=== PATIENT | female | born 1955 | race Caucasian/White ===

== ENCOUNTER 2017-04-17 10:42 | Outpatient (RCR) | payer MEDICAID, SELFPAY ==
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
--- NOTE | 2017-04-17 11:17 | PR.ITP_ITS ---
General Information - General Information Admitting Diagnosis: COPD Gold Classification:: GOLD 3: Severe Oxygen: none - PFT FEV1:: 0.85 FVC:: 1.87 FEV1/FVC%:: 45 - Education/Goals Barriers to Learning: Vision Impairment Individual Counseling: Initial Assessment: Dyspnea control techniques at rest, activity, and ADLs, Inhaled and respiratory medications, Exacerbation prevention & management, O2, Rx, system, safety, Nutrition & weight management, Smoking cessation - Critical Patient Goals: Breathe better: Initial Assessment, Increase endurance/stamina: Initial Assessment, Return to recreation/hobby: Initial Assessment, Control panic/anxiety: Initial Assessment, Symptom management: Initial Assessment, Take medications correctly: Initial Assessment, Stop smoking/maintain cessation: Initial Assessment Exercise - Initial Assessment - Visit Date of Eval: 04/17/17 - Problem/Goals Problems: Deconditioning, No regular exercise, Knowledge deficit exercise guidelines, Knowledge deficit exercise safety - Exercise Prescription Mode:: Treadmill, Airdyne, NuStep, Arm Ergometer Frequency (x/week): 3 Duration:: 35 MET LEVEL:: 2 HR (bpm):: 117 - 108-117 Exercise Progression: as tolerated per patient and per protocol - Plan Plan and Plan to Review:: Benefits of exercise, Core components of exercise, How to measure dyspnea level, How to monitor dyspnea level, Exercise intensity, Exercise safety guideline, Home exercise guidelines, Carmina: 3-4/11-13 Disease Management - Initial - Problems/Goals-Hypoxemia Hypoxemia Problems:: Hypoxemia, Poor knowledge of O2 use/safety - Problems/Goals-Medications Medication Problems:: Medication non-adherence, Incorrect inahled Rx use, technique Medication Goals: Adherence to prescribed medications, Correct technique/timing & care of MDI, DPI, nebulizer, and spacer. - Problems/Goals-Bronchial Hygiene Bronchial Hygiene Problems:: Ineffective secretion clearance, Respiratory infection Prevention/Management Bronchial Hygiene Goals:: Pt demonstrates effective cough, effective secretion clearance., Pt describes signs and symptoms of infection. - Initial Assessment SpO2:: 92 FiO2:: 21 Does pt report taking home meds as prescribed?: Yes Medications: Yes MDI, Yes NEB Psychosocial - Initial Assess - Problems/Goals Problems: Anxiety, Impaired Q.O.L. Psychosocial Goals: Improved psychosocial coping skills., Improved Q.O.L. - Psychosocial Test Depression:: Impaired QOL Referred to MD for counseling:: No - Plan Instructions given regarding:: Benefits of exercise, Relaxation techniques, Training in coping strategies Tobacco - Initial Assessment - Program Goals Tobacco Program Goals: Complete smoking cessation. Attend education classes. Improve Knowledge Test score - Stage of Change Stages of Change:: Action - Learning Barriers Learning Barriers: Vision, Ready to Learn - Tobacco Use Tobacco Use: Cigarettes - Smoking Cessation Critical on Wellbutrin Do you use smokeless tobacco?: No - Intervention Smoking Cessation Referral:: Yes Individual Education/Counseling:: Yes Education Schedule Given:: Yes - Education Gave Education Materials For:: Tobacco Triggers, Pulmonary Disease, Risk Factors , Breathing Techniques, Medical Compliance, Pulmonary A&P, Exacerbation Signs & Symptoms, Stress & Relaxation Nutrition/Wt Mgmt - Initial - Problems/Goals Problems: Overweight Goals: Wt Loss 1-2 lbs per week - Weight Management Knowledge Deficit Management of:: Overweight, Weight control w/Prednisone Admit Height:: 5 ft 2 in Admit Weight:: 76.204 kg Admit BMI:: 30.7 - Diabetes Diabetes:: No Insulin: No Do you monitor your blood sugar at home?: No - Intervention Referral to dietitian:: No Referral to Diabetic Clinic:: No Will attend diet classes:: Yes - Plan Nutrition Plan: Yes Nutrition education class:, Yes Medication education class [ Prednisone]:, Yes Weight control education class: Patient Health Questionnaire Initial Assessment 1. Little interest or pleasure in doing things: Several days 2. Feeling down, depressed, or hopeless: Not at all 3. Trouble falling or staying asleep, or sleeping too much: Nearly every day 4. Feeling tired or having little energy: Nearly every day 5. Poor appetite or overeating: More than half the days 6. Feeling bad about yourself -- or that you are a failure or have let yourself or your family down: Not at all 7. Trouble concentrating on things, such as reading the newspaper or watching television: Not at all 8. Moving or speaking so slowly that other people could have noticed. Or the opposite - being so fidgety or restless that you have been moving around a lot more than usual: Not at all 9. Thoughts that you would be better off , or of hurting yourself in some way: Not at all How difficult have these problems made it for you to do your work, take care of things at home, or get along with other people?: Very difficult Total Score: 9 COPD Knowledge Test Initial COPD is a lung disease that:: Makes it hard to breathe & gets worse over time In the [place] the term COPD describes 2 main lung conditions:: Emphysema & chronic bronchitis The most common lung irritant that causes COPD is:: Air pollution Common signs and symptoms of COPD include:: An ongoing cough/cough that produces a large amount of mucus, & SOB If you have COPD, what steps can you take?: All of the above Swelling of the ankles is common in COPD:: True Fatigue [tiredness] is common in COPD:: True Wheezing is common in COPD:: True Crushing chest pain is common in COPD:: False Rapid weight loss is common in COPD:: False Breathlessness is a normal response to exercise: True Exercise should be avoided if it makes you short of breath: False All bronchodilators act within 10 minutes: True A spacer device increases the medication to the lungs: False Annual flu vaccine is recommended for pts w/lung disease: True COPD Knowledge Test Total Score:: 11 COPD Assessment Test [CAT] - Questions Never cough = 0, Cough all the time = 5: 5 No phlegm = 0, Chest full of phlegm = 5: 4 No chest tightness = 0, Chest very tight = 5: 3 No breathless w/exertion = 0, Very breathless w/exertion = 5: 5 No limitations w/activity = 0, Very limited w/activity = 5: 3 Confident leaving home = 0, Not at all confident = 5: 0 Sleep soundly = 0, Don't sleep soundly = 5: 3 Lots of energy = 0, No energy at all = 5: 4 Total CAT score:: 27 Self-Efficacy Initial Assessment We would like to know how confident you are in doing certain activities. Please select your confidence level for:: Select your confidence level for the following using the scale 1-10 where 1 is not at all confident and 10 is totally confident. Your score is the average of all 6 responses. Fatigue: How confident are you that you can keep the fatigue caused by your disease from interfering with the things you want to do? Select Number: 5 Physical Discomfort or Pain: How confident are you that you can keep the physical discomfort or pain of your disease from interfering with the things you want to do? Select Number: 5 Emotional Distress: How confident are you that you can keep the emotional distress caused by your disease from interfering with the things you want to do? Select Number: 5 Other Symptoms or Health Problems: How confident are you that you can keep other symptoms or health problems from interfering with the things you want to do? Select Number: 5 Different Tasks and Activities: How confident are you that you can do the different tasks and activities needed to manage your health condition so as to reduce your need to see a doctor? Select Number: 8 Medication: How confident are you that you can do things other than just taking medication to reduce how much your illness affects your everyday life? Select Number: 10 Total Score:: 6 Nutrition Survey - Nutrition Survey Instructions Scoring Instructions: Scoring is as follows: Yes = 1 points. No = 0 point. Patient score that is >/=12 is considered to be at potential nutritional risk and could benefit from a referral to a registered dietitian. - Nutrition Survey Initial Have you lost >10 lbs over the past 2 months without trying?: No Are you following a special diet at home for diabetes, low fat, or low salt?: No Are you interested in meeting with a dietitian for help understanding your diet? : No Do you eat less than 3 meals a day?: Yes Do you eat fatty meats (still, sausage, ribs, etc), fried foods, desserts, large amounts of salad dressings, margarine, butter, or cheese most days?: Yes Do you have food allergies? [Enter types in comment field]: No Do you eat in restaurants more than 3 times a week?: Yes Do you season food with salt, seasoning salt, or garlic salt?: Yes Do you used canned, boxed, frozen meals, or soups, seasoning packets?: No Total Score:: 4
[2017-04-17 11:44] VITALS: BP 136/80; PULSE 90; RESP 16; TEMP 37.1; O2SAT 92; BMI 30.7
[2017-04-17 12:44] VITALS: O2SAT 92; BMI 30.7
--- NOTE | 2017-04-17 12:48 | PR.DATECOV_ITS ---
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 Effective Nov 22, 2012 our hours will be changing to 8:00 to 4:30 on Friday, Friday and Friday. First Date of the Month: 05/02/17 Last Date of the Month: 05/21/17
== END 2017-04-23 23:59 ==
LOC: PR 10:42
PROVIDERS: Family Provider Family Medicine; PCP Family Medicine; Visit Provider Internal Medicine Pulmonary Disease
DX: J44.9 Chronic obstructive pulmonary disease, unspecified (principal)
CPT/HCPCS: 97150; G0424

== ENCOUNTER 2017-05-21 08:00 | Outpatient (RCR) | payer MEDICAID, SELFPAY ==
[2017-04-17 11:44] VITALS: BP 136/80
[2017-04-24 01:17] VITALS: PULSE 90; RESP 16; TEMP 37.1; O2SAT 92
--- NOTE | 2017-05-06 07:50 | CR.ITP_ITS ---
Exercise - Initial Assessment - Visit Date of Eval: 05/06/17 - initial evaluation for 04/14/17 PCI - Stages of Change Stages of Change:: Action - Stress Test HR (bpm):: 117 - 108-117 MET LEVEL:: 2 - Exercise Prescription Mode:: Treadmill, Airdyne, NuStep, Arm Ergometer Angina with exercise?: No Target Heart Rate:: 126-135 - Hypertension Do any of the following apply?: Yes Resting Blood Pressure:: 100/72 - Intervention Home Exercise/Activity Goal:: Moderate Exercise 30 min/day x 5 days/wk - Education Goals:: Warm-up, RPE SANIA Scale, S/S, Safe Exercise, Self-Monitoring - Exercise Program Goals Exercise Program Goals: Aerobic Activity >30 min Nutrition - Initial Assessment - Program Goals Nutrition Program Goals: LDL <70. Total Cholesterol <200. HDL >45. Triglycerides <150. HgbA1C <7%. BMI <25 - Visit Date of Assessment:: 05/06/17 - Stages of Change Stages of Change:: Action - Diabetes Diabetes:: Yes Insulin: Yes - at HS Do you monitor your blood sugar at home?: Yes - Weight Management Height: 5 ft 4 in Weight:: 105.448 kg Total Score:: 0 - Intervention Referral to dietitian:: Yes Referral to Diabetic Clinic:: Yes Will attend diet classes:: Yes - Education Gave educational materials for:: Signs & symptoms of hypoglycemia, Signs & symptoms of hyperglycemia, Relate diabetes to coronary artery disease, Healthy eating Nutrition - 30-Day Assessment - Program Goals Nutrition Program Goals: LDL <70. Total Cholesterol <200. HDL >45. Triglycerides <150. HgbA1C <7%. BMI <25 - Diabetes Diabetes:: No Insulin: No - Intervention Referral to dietitian:: No Referral to Diabetic Clinic:: No Will attend diet classes:: Yes Nutrition - 60-Day Assessment - Program Goals Nutrition Program Goals: LDL <70. Total Cholesterol <200. HDL >45. Triglycerides <150. HgbA1C <7%. BMI <25 - Diabetes Diabetes:: No Insulin: No - Intervention Referral to dietitian:: No Referral to Diabetic Clinic:: No Will attend diet classes:: Yes Nutrition - 90-Day Assessment - Program Goals Nutrition Program Goals: LDL <70. Total Cholesterol <200. HDL >45. Triglycerides <150. HgbA1C <7%. BMI <25 - Diabetes Diabetes:: No Insulin: No - Intervention Referral to dietitian:: No Referral to Diabetic Clinic:: No Will attend diet classes:: Yes Nutrition - Final Assessment - Program Goals Nutrition Program Goals: LDL <70. Total Cholesterol <200. HDL >45. Triglycerides <150. HgbA1C <7%. BMI <25 - Diabetes Diabetes:: No Insulin: No - Weight Management Total Score:: 4 - Intervention Referral to dietitian:: No Referral to Diabetic Clinic:: No Will attend diet classes:: Yes Tobacco - Initial Assessment - Program Goals Tobacco Program Goals: Complete smoking cessation. Attend education classes. Improve Knowledge Test score - Stage of Change Stages of Change:: Action - Learning Barriers Learning Barriers: Vision, Ready to Learn - Family Support Do you have family support?: Yes - Tobacco Use Tobacco Use: Cigarettes - last cigarette Friday05/02/2017 How long ago did you quit using tobacco products?: Less than 6 months ago How many cigarettes do you smoke per day?: 0 - last cigarette was 05/02/2017 Do you use smokeless tobacco?: No - Intervention Smoking Cessation Referral:: Yes - Please follow-up with patient. Individual Education/Counseling:: Yes Education Schedule Given:: Yes - Education Gave educational material for:: Tobacco triggers, Coronary artery disease, Risk factors, Sexuality, Medical compliance, Cardiac A&P, Angina signs & symptoms Tobacco - 30-Day Assessment - Program Goals Tobacco Program Goals: Complete smoking cessation. Attend education classes. Improve Knowledge Test score - Tobacco Use Tobacco Use: Cigarettes Do you use smokeless tobacco?: No - Intervention Smoking Cessation Referral:: Yes Individual Education/Counseling:: Yes Education Schedule Given:: Yes Tobacco - 60-Day Assessment - Program Goals Tobacco Program Goals: Complete smoking cessation. Attend education classes. Improve Knowledge Test score - Tobacco Use Tobacco Use: Cigarettes Do you use smokeless tobacco?: No - Intervention Smoking Cessation Referral:: Yes Individual Education/Counseling:: Yes Education Schedule Given:: Yes Tobacco - 90-Day Assessment - Program Goals Tobacco Program Goals: Complete smoking cessation. Attend education classes. Improve Knowledge Test score - Tobacco Use Tobacco Use: Cigarettes Do you use smokeless tobacco?: No - Intervention Smoking Cessation Referral:: Yes Individual Education/Counseling:: Yes Education Schedule Given:: Yes Tobacco - Final Assessment - Program Goals Tobacco Program Goals: Complete smoking cessation. Attend education classes. Improve Knowledge Test score - Tobacco Use Tobacco Use: Cigarettes Do you use smokeless tobacco?: No - Intervention Smoking Cessation Referral:: Yes Individual Education/Counseling:: Yes Education Schedule Given:: Yes Psychosocial - Initial Assess - Target Goals Target Goals: Assess presence or absence of depression. Using a valid screening tool, maximizes coping skills. Positive support system - Stages of Change Stages of Change:: Action - Psychosocial Test Tool Used:: HANDS Depression Questionnaire Self-Efficacy Score:: 0 - Intervention PS - Interventions: Yes Attend Stress Management Classes, No Referral to Mental Health, No Referral to [facility] Case Management, No Referral to Physician, No Uses Stress Management Skills - Education Gave educational materials for:: Coping techniques, Signs & symptoms of depression, Stress management, Relaxation techniques - Patient/Program Goal Preventative Medication(s):: Aspirin, Beta mona, Statin/lipid - Assistive Devices Assistive Devices:: None Fall Risk Assessed:: Yes Psychosocial - 30-Day Assess - Target Goals Target Goals: Assess presence or absence of depression. Using a valid screening tool, maximizes coping skills. Positive support system - Psychosocial Test Tool Used:: HANDS Depression Questionnaire Self-Efficacy Score:: 6 Psychosocial - 60-Day Assess - Target Goals Target Goals: Assess presence or absence of depression. Using a valid screening tool, maximizes coping skills. Positive support system - Psychosocial Test Tool Used:: HANDS Depression Questionnaire Self-Efficacy Score:: 6 Psychosocial - 90-Day Assess - Target Goals Target Goals: Assess presence or absence of depression. Using a valid screening tool, maximizes coping skills. Positive support system - Psychosocial Test Tool Used:: HANDS Depression Questionnaire Self-Efficacy Score:: 6 Psychosocial - Final Assessmen - Target Goals Target Goals: Assess presence or absence of depression. Using a valid screening tool, maximizes coping skills. Positive support system - Psychosocial Test Tool Used:: HANDS Depression Questionnaire Self-Efficacy Score:: 6 Patient Health Questionnaire Initial Assessment 1. Little interest or pleasure in doing things: Not at all 2. Feeling down, depressed, or hopeless: Several days 3. Trouble falling or staying asleep, or sleeping too much: Several days 4. Feeling tired or having little energy: Several days 5. Poor appetite or overeating: Several days 6. Feeling bad about yourself -- or that you are a failure or have let yourself or your family down: Several days 7. Trouble concentrating on things, such as reading the newspaper or watching television: Not at all 8. Moving or speaking so slowly that other people could have noticed. Or the opposite - being so fidgety or restless that you have been moving around a lot more than usual: Not at all 9. Thoughts that you would be better off , or of hurting yourself in some way: Not at all How difficult have these problems made it for you to do your work, take care of things at home, or get along with other people?: Not difficult at all Total Score: 5 Knowledge Test - Check your knowledge Initial The #1 cause of in the [place] each year is:: Heart disease Which of the following is a common treatment for heart disease?: All of the above The arteries that feed the heart are called:: Coronary arteries HDL cholesterol is known as the good cholesterol.: False What disease increases your risk for heart disease?: Diabetes What food product raises blood cholesterol level the most?: Saturated fat The bad cholesterol in the blood is called:: HDL Hypertension is another word for:: High blood pressure A blood pressure reading of 148/88 is considered normal.: True Exercise will only benefit your health when your heart rate reaches a target level.: True Total Score:: 6 Self-Efficacy Initial Assessment We would like to know how confident you are in doing certain activities. Please select your confidence level for:: Select your confidence level for the following using the scale 1-10 where 1 is not at all confident and 10 is totally confident. Your score is the average of all 6 responses. Fatigue: How confident are you that you can keep the fatigue caused by your disease from interfering with the things you want to do? Select Number: 8 Physical Discomfort or Pain: How confident are you that you can keep the physical discomfort or pain of your disease from interfering with the things you want to do? Select Number: 8 Emotional Distress: How confident are you that you can keep the emotional distress caused by your disease from interfering with the things you want to do? Select Number: 8 Other Symptoms or Health Problems: How confident are you that you can keep other symptoms or health problems from interfering with the things you want to do? Select Number: 8 Different Tasks and Activities: How confident are you that you can do the different tasks and activities needed to manage your health condition so as to reduce your need to see a doctor? Select Number: 9 Medication: How confident are you that you can do things other than just taking medication to reduce how much your illness affects your everyday life? Select Number: 8 Total Score:: 8 Nutrition Survey - Nutrition Survey Instructions Scoring Instructions: Scoring is as follows: Yes = 1 points. No = 0 point. Patient score that is >/=12 is considered to be at potential nutritional risk and could benefit from a referral to a registered dietitian. - Nutrition Survey Initial Have you lost >10 lbs over the past 2 months without trying?: No Are you following a special diet at home for diabetes, low fat, or low salt?: Yes Are you interested in meeting with a dietitian for help understanding your diet? : No Do you eat less than 3 meals a day?: Yes Do you eat fatty meats (still, sausage, ribs, etc), fried foods, desserts, large amounts of salad dressings, margarine, butter, or cheese most days?: No Do you have food allergies? [Enter types in comment field]: No Do you eat in restaurants more than 3 times a week?: No Do you season food with salt, seasoning salt, or garlic salt?: No Do you used canned, boxed, frozen meals, or soups, seasoning packets?: No Total Score:: 2 Cardiac Rehabilitation Goals - Cardiac Rehab Goals Cardiac Rehabilitation Goals: 1. Maintain the individual as the primary focus of care. 2. To improve the patient's quality of life. 3. Identification of cardiac risk factors and provide cardiac risk factor management. 4. Enhance the psychosocial status of the patient. 5. Reconditioning enough to allow the patient to resume customary activities. 6. Control symptoms of cardiac disease - Scale Scale for measuring improvement of personal goals: Enter appropriate number in Comments. 2 = Unchanged. 3 = Slightly Better. 4 = Moderate Improvement. 5 = Met my Goal Initial Assessment Personal Goals: 30-day Re-assessment: Quit smoking (participate in smoking cessation, Improve management of stress and emotions, Improve energy level, Get back to work, or to resume activities faster, Improve diet and eating habits ( eat healthier), Control risk factors (learn risk factor modification)
[2017-05-06 08:41] VITALS: BP 100/72
--- NOTE | 2017-05-19 13:02 | PR.DATECOV_ITS ---
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 Effective Nov 22, 2012 our hours will be changing to 8:00 to 4:30 on Friday, Friday and Friday. First Date of the Month: 05/22/17 Last Date of the Month: 06/20/17
--- NOTE | 2017-05-19 13:08 | PR.ITP_ITS ---
Exercise - 30-Day Assessment - Exercise Prescription Mode:: Treadmill, NuStep, Arm Ergometer Frequency (x/week): 3 Duration:: 30 Aerobic Exercise [30-60 min 3-7x/week]:: Progressing Target heart rate: 117 - 109-117 Max HR 104 Carmina MET Level:: 2 - 2.3 MET level currently - Home Exercise Home Exercise:: No Disease Management - 30-Day - Hypoxemia Reassessment: Demonstrates knowledge of O2 Rx at rest, Demonstrates knowledge of O2 Rx with exercise, Using O2 as prescribed, Has home O2 as prescribed, Uses port O2 as prescribed - Medications Medication list reviewed:: Yes Taking medications 100% of the time:: Approximately 75% of the time Medication reassessment: Yes Pt demonstrates correct technique timing for MDI, Yes Pt demonstrates correct technique timing for DPI, Yes Pt demonstrates correct technique timing for NEB, Yes Pt demonstrates correct technique timing for spacer Psychosocial - 30-Day - Assessment Reassessment: Practicing interventions, Demonstrate coping strategies Tobacco - 30-Day Assessment - Program Goals Tobacco Program Goals: Complete smoking cessation. Attend education classes. Improve Knowledge Test score - Stage of Change Stages of Change:: Action - Learning Barriers Learning Barriers: Participates in education - Family Support Do you have family support?: Yes - Tobacco Use Tobacco Use: Non-smoker Do you use smokeless tobacco?: No - Intervention Smoking Cessation Referral:: Yes - emotional support tobacco dependency in remission Individual Education/Counseling:: No Education Schedule Given:: Yes - Education Gave Education Materials For:: Tobacco Triggers, Pulmonary Disease, Risk Factors , Breathing Techniques, Medical Compliance, Pulmonary A&P, Exacerbation Signs & Symptoms, Stress & Relaxation Nutrition/Wt Mgmt - 30-Day - Weight Management Weight Assessment:: Wt stable Weight:: 78.653 kg Weight Goals Progress:: Not progressing Patient Health Questionnaire 30-Day Re-eval Assessment 1. Little interest or pleasure in doing things: Not at all 2. Feeling down, depressed, or hopeless: Several days 3. Trouble falling or staying asleep, or sleeping too much: Not at all 4. Feeling tired or having little energy: Several days 5. Poor appetite or overeating: Not at all 6. Feeling bad about yourself -- or that you are a failure or have let yourself or your family down: Not at all 7. Trouble concentrating on things, such as reading the newspaper or watching television: Not at all 8. Moving or speaking so slowly that other people could have noticed. Or the opposite - being so fidgety or restless that you have been moving around a lot more than usual: Not at all 9. Thoughts that you would be better off , or of hurting yourself in some way: Not at all How difficult have these problems made it for you to do your work, take care of things at home, or get along with other people?: Not difficult at all Total Score: 2 COPD Assessment Test [CAT] - Questions Never cough = 0, Cough all the time = 5: 3 No phlegm = 0, Chest full of phlegm = 5: 2 No chest tightness = 0, Chest very tight = 5: 3 No breathless w/exertion = 0, Very breathless w/exertion = 5: 2 No limitations w/activity = 0, Very limited w/activity = 5: 2 Confident leaving home = 0, Not at all confident = 5: 2 Sleep soundly = 0, Don't sleep soundly = 5: 3 Lots of energy = 0, No energy at all = 5: 2 Total CAT score:: 19 Self-Efficacy 30-Day Re-eval Assessment We would like to know how confident you are in doing certain activities. Please select your confidence level for:: Select your confidence level for the following using the scale 1-10 where 1 is not at all confident and 10 is totally confident. Your score is the average of all 6 responses. Fatigue: How confident are you that you can keep the fatigue caused by your disease from interfering with the things you want to do? Select Number: 7 Physical Discomfort or Pain: How confident are you that you can keep the physical discomfort or pain of your disease from interfering with the things you want to do? Select Number: 7 Emotional Distress: How confident are you that you can keep the emotional distress caused by your disease from interfering with the things you want to do? Select Number: 7 Other Symptoms or Health Problems: How confident are you that you can keep other symptoms or health problems from interfering with the things you want to do? Select Number: 8 Different Tasks and Activities: How confident are you that you can do the different tasks and activities needed to manage your health condition so as to reduce your need to see a doctor? Select Number: 9 Medication: How confident are you that you can do things other than just taking medication to reduce how much your illness affects your everyday life? Select Number: 8 Total Score:: 7
== END 2017-05-21 23:59 ==
LOC: PR 08:00
PROVIDERS: Family Provider Family Medicine; PCP Family Medicine; Visit Provider Internal Medicine Pulmonary Disease
DX: J44.9 Chronic obstructive pulmonary disease, unspecified (principal)
CPT/HCPCS: 97150; G0424

== ENCOUNTER 2017-06-20 08:00 | Outpatient (RCR) | payer MEDICAID, SELFPAY ==
[2017-05-22 00:57] VITALS: BP 100/72; BP 136/80; PULSE 90; RESP 16; TEMP 37.1; O2SAT 92; BMI 30.7
--- NOTE | 2017-06-16 13:12 | PR.DATECOV_ITS ---
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 Effective Nov 22, 2012 our hours will be changing to 8:00 to 4:30 on Friday, Friday and Friday. First Date of the Month: 06/22/17 Last Date of the Month: 07/21/17
--- NOTE | 2017-06-16 13:13 | PCM.PR.TP ---
Exercise - 60-Day Assessment - Current Level Mode:: Treadmill, Airdyne, NuStep, Arm Ergometer Frequency (x/week): 3 Duration:: 30 Aerobic Exercise [30-60 min 3-7x/week]:: Met Target heart rate: 117 - 109-117 w/max HR 116 Carmina.5 MET Level:: 3 - Home Exercise Home Exercise:: No Disease Management - 60-Day - Hypoxemia Reassessment: Demonstrates knowledge of O2 Rx at rest, Demonstrates knowledge of O2 Rx with exercise, Using O2 as prescribed, Has home O2 as prescribed, Uses port O2 as prescribed - Medications Medication list reviewed:: Yes Taking medications 100% of the time:: Met Medication reassessment: Yes Pt demonstrates correct technique timing for MDI, Yes Pt demonstrates correct technique timing for DPI, Yes Pt demonstrates correct technique timing for NEB, Yes Pt demonstrates correct technique timing for spacer - Bronchial Hygiene Bronchial Hygiene Plan: Yes Pt demo correct for device - returned demonstration of acapella device, Yes Pt demo correct for improved hydration - drinks water during exercise, carries bottle water, Yes Pt demo correct for hand hygiene, Yes Pt demo correct for verbalize when to call MD - verbalizes signs symptoms Psychosocial - 60-Day - Assessment Depression reassess: Management of stress: Met, Management of depression: Met, Practicing interventions: Met Tobacco - 60-Day Assessment - Program Goals Tobacco Program Goals: Complete smoking cessation. Attend education classes. Improve Knowledge Test score - Stage of Change Stages of Change:: Action - Learning Barriers Learning Barriers: Participates in education - Family Support Do you have family support?: Yes - Tobacco Use Tobacco Use: Non-smoker Do you use smokeless tobacco?: No - Intervention Smoking Cessation Referral:: No Individual Education/Counseling:: No Education Schedule Given:: Yes - Education Gave Education Materials For:: Pulmonary Disease, Risk Factors, Breathing Techniques, Medical Compliance, Pulmonary A&P, Exacerbation Signs & Symptoms, Stress & Relaxation Nutrition/Wt Mgmt - 60-Day - Weight Management Weight Assessment:: Wt stable Weight:: 177 lb - gained 4 pounds this month Weight Goals Progress:: Not progressing Patient Health Questionnaire 60-Day Re-eval Assessment 1. Little interest or pleasure in doing things: Not at all 2. Feeling down, depressed, or hopeless: Not at all 3. Trouble falling or staying asleep, or sleeping too much: Not at all 4. Feeling tired or having little energy: Several days 5. Poor appetite or overeating: Not at all 6. Feeling bad about yourself -- or that you are a failure or have let yourself or your family down: Not at all 7. Trouble concentrating on things, such as reading the newspaper or watching television: Not at all 8. Moving or speaking so slowly that other people could have noticed. Or the opposite - being so fidgety or restless that you have been moving around a lot more than usual: Not at all 9. Thoughts that you would be better off , or of hurting yourself in some way: Not at all How difficult have these problems made it for you to do your work, take care of things at home, or get along with other people?: Not difficult at all Total Score: 1 COPD Assessment Test [CAT] - Questions Never cough = 0, Cough all the time = 5: 3 No phlegm = 0, Chest full of phlegm = 5: 1 No chest tightness = 0, Chest very tight = 5: 1 No breathless w/exertion = 0, Very breathless w/exertion = 5: 2 No limitations w/activity = 0, Very limited w/activity = 5: 2 Confident leaving home = 0, Not at all confident = 5: 1 Sleep soundly = 0, Don't sleep soundly = 5: 3 Lots of energy = 0, No energy at all = 5: 2 Total CAT score:: 15 Self-Efficacy 60-Day Re-eval Assessment We would like to know how confident you are in doing certain activities. Please select your confidence level for:: Select your confidence level for the following using the scale 1-10 where 1 is not at all confident and 10 is totally confident. Your score is the average of all 6 responses. Fatigue: How confident are you that you can keep the fatigue caused by your disease from interfering with the things you want to do? Select Number: 9 Physical Discomfort or Pain: How confident are you that you can keep the physical discomfort or pain of your disease from interfering with the things you want to do? Select Number: 9 Emotional Distress: How confident are you that you can keep the emotional distress caused by your disease from interfering with the things you want to do? Select Number: 8 Other Symptoms or Health Problems: How confident are you that you can keep other symptoms or health problems from interfering with the things you want to do? Select Number: 10 Different Tasks and Activities: How confident are you that you can do the different tasks and activities needed to manage your health condition so as to reduce your need to see a doctor? Select Number: 10 Medication: How confident are you that you can do things other than just taking medication to reduce how much your illness affects your everyday life? Select Number: 10 Total Score:: 9
== END 2017-06-21 23:59 ==
LOC: PR 08:00
PROVIDERS: Family Provider Family Medicine; PCP Family Medicine; Visit Provider Internal Medicine Pulmonary Disease
DX: J44.9 Chronic obstructive pulmonary disease, unspecified (principal)
CPT/HCPCS: 97150; G0424

== ENCOUNTER 2017-07-18 08:00 | Outpatient (RCR) | payer MEDICAID, SELFPAY ==
[2017-06-22 00:48] VITALS: BP 100/72; BP 136/80; PULSE 90; RESP 16; TEMP 37.1; O2SAT 92; BMI 30.7
--- NOTE | 2017-07-15 07:06 | PR.DATECOV_ITS ---
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 Effective Nov 22, 2012 our hours will be changing to 8:00 to 4:30 on Friday, Friday and Friday. First Date of the Month: 07/22/17 Last Date of the Month: 08/21/17
--- NOTE | 2017-07-15 07:12 | PR.ITP_ITS ---
Exercise - 90-Day Assessment - Exercise Prescription Mode:: Treadmill, NuStep, Arm Ergometer Frequency (x/week): 3 Duration:: 30 Aerobic Exercise [30-60 min 3-7x/week]:: Progressing Target heart rate: 117 - THRR 109-117 w/ max HR 111 Carmina MET Level:: 4 - Home Exercise Home Exercise?: Yes Frequency:: every other day Time (minutes):: 30 - walks Disease Management - 90-Day - Medications Medication list reviewed:: Yes Taking medications 100% of the time:: Met Psychosocial - 90-Day - Assessment Depression reassess: Management of stress: Met, Management of depression: Met, Practicing interventions: Met Tobacco - 90-Day Assessment - Program Goals Tobacco Program Goals: Complete smoking cessation. Attend education classes. Improve Knowledge Test score - Stage of Change Stages of Change:: Action - Learning Barriers Learning Barriers: Participates in education - Family Support Do you have family support?: Yes - Tobacco Use Tobacco Use: Cigarettes How many cigarettes do you smoke per day?: 2 - 1-5 only now and then, trying to quit. Do you use smokeless tobacco?: No - Intervention Smoking Cessation Referral:: Yes Individual Education/Counseling:: No Education Schedule Given:: Yes - Education Gave Education Materials For:: Tobacco Triggers, Pulmonary Disease, Risk Factors , Breathing Techniques, Medical Compliance, Pulmonary A&P, Exacerbation Signs & Symptoms, Stress & Relaxation Nutrition/Wt Mgmt - 90-Day - Weight Management Weight:: 179 lb Weight Goals Progress:: Progressing Patient Health Questionnaire 90-Day Re-eval Assessment 1. Little interest or pleasure in doing things: Not at all 2. Feeling down, depressed, or hopeless: Not at all 3. Trouble falling or staying asleep, or sleeping too much: Several days 4. Feeling tired or having little energy: Several days 5. Poor appetite or overeating: Not at all 6. Feeling bad about yourself -- or that you are a failure or have let yourself or your family down: Not at all 7. Trouble concentrating on things, such as reading the newspaper or watching television: Not at all 8. Moving or speaking so slowly that other people could have noticed. Or the opposite - being so fidgety or restless that you have been moving around a lot more than usual: Not at all 9. Thoughts that you would be better off , or of hurting yourself in some way: Not at all How difficult have these problems made it for you to do your work, take care of things at home, or get along with other people?: Not difficult at all Total Score: 2 COPD Assessment Test [CAT] - Questions Never cough = 0, Cough all the time = 5: 3 No phlegm = 0, Chest full of phlegm = 5: 2 No chest tightness = 0, Chest very tight = 5: 2 No breathless w/exertion = 0, Very breathless w/exertion = 5: 2 No limitations w/activity = 0, Very limited w/activity = 5: 1 Confident leaving home = 0, Not at all confident = 5: 1 Sleep soundly = 0, Don't sleep soundly = 5: 2 Lots of energy = 0, No energy at all = 5: 1 Total CAT score:: 14 Self-Efficacy 90-Day Re-eval Assessment We would like to know how confident you are in doing certain activities. Please select your confidence level for:: Select your confidence level for the following using the scale 1-10 where 1 is not at all confident and 10 is totally confident. Your score is the average of all 6 responses. Fatigue: How confident are you that you can keep the fatigue caused by your disease from interfering with the things you want to do? Select Number: 8 Physical Discomfort or Pain: How confident are you that you can keep the physical discomfort or pain of your disease from interfering with the things you want to do? Select Number: 9 Emotional Distress: How confident are you that you can keep the emotional distress caused by your disease from interfering with the things you want to do? Select Number: 10 Other Symptoms or Health Problems: How confident are you that you can keep other symptoms or health problems from interfering with the things you want to do? Select Number: 9 Different Tasks and Activities: How confident are you that you can do the different tasks and activities needed to manage your health condition so as to reduce your need to see a doctor? Select Number: 10 Medication: How confident are you that you can do things other than just taking medication to reduce how much your illness affects your everyday life? Select Number: 10 Total Score:: 9
== END 2017-07-21 23:59 ==
LOC: PR 08:00
PROVIDERS: Family Provider Family Medicine; PCP Family Medicine; Visit Provider Internal Medicine Pulmonary Disease
DX: J44.9 Chronic obstructive pulmonary disease, unspecified (principal)
CPT/HCPCS: 97150; G0424

== ENCOUNTER 2017-07-30 08:00 | Outpatient (RCR) | payer MEDICAID, SELFPAY ==
[2017-07-22 00:41] VITALS: BP 100/72; BP 136/80; PULSE 90; RESP 16; TEMP 37.1; O2SAT 92; BMI 30.7
--- NOTE | 2017-08-14 11:21 | PR.ITP_ITS ---
Exercise - Final Assessment - Exercise Prescription Mode:: Treadmill, NuStep, Arm Ergometer Frequency (x/week): 3 Duration:: 30 Aerobic Exercise [30-60 min 3-7x/week]:: Met Further followup [see D/C Summary]:: No Target heart rate: 109-117 Carmina MET Level:: 4.5 - 114% increase since starting program - Home Exercise Home Exercise:: No Disease Management - Final - Hypoxemia Final Assessment: Demonstrates knowledge of O2 Rx at rest, Demonstrates knowledge of O2 Rx with exercise, Using O2 as prescribed, Has home O2 as prescribed, Uses port O2 as prescribed - Medications Medication list reviewed:: Yes Taking medications 100% of the time:: Met Medication reassessment: Yes Pt demonstrates correct technique timing for MDI, Yes Pt demonstrates correct technique timing for DPI, Yes Pt demonstrates correct technique timing for NEB, Yes Pt demonstrates correct technique timing for spacer - Bronchial Hygiene Bronchial Hygiene Plan: Yes Pt demonstrates correctly for effective cough, Yes Pt demo correct for device, Yes Pt demo correct for improved hydration, Yes Pt demo correct for hand hygiene, Yes Pt demo correct for verbalize when to call MD , Yes Pt demo correct for cleaning of respiratory equipment Psychosocial - Final Assess - Assessment Depression reassess: Management of stress: Met, Management of depression: Met, Practicing interventions: Met Tobacco - Final Assessment - Program Goals Tobacco Program Goals: Complete smoking cessation. Attend education classes. Improve Knowledge Test score - Stage of Change Stages of Change:: Action - Learning Barriers Learning Barriers: Participates in education, Change in behavior - Family Support Do you have family support?: Yes - Tobacco Use Do you use smokeless tobacco?: No - Education Education Goal Reached?: Yes Nutrition/Wt Mgmt - Final - Weight Management Weight:: 180 lb 8 oz - 12.5# weight gain Weight Goals Progress:: Not progressing COPD Knowledge Test Discharge COPD is a lung disease that:: Makes it hard to breathe & gets worse over time In the [place] the term COPD describes 2 main lung conditions:: Emphysema & chronic bronchitis The most common lung irritant that causes COPD is:: Cigarette smoke Common signs and symptoms of COPD include:: An ongoing cough/cough that produces a large amount of mucus, & SOB If you have COPD, what steps can you take?: All of the above Swelling of the ankles is common in COPD:: False Fatigue [tiredness] is common in COPD:: True Wheezing is common in COPD:: True Crushing chest pain is common in COPD:: False Rapid weight loss is common in COPD:: False Breathlessness is a normal response to exercise: True Exercise should be avoided if it makes you short of breath: False All bronchodilators act within 10 minutes: False A spacer device increases the medication to the lungs: True Annual flu vaccine is recommended for pts w/lung disease: True COPD Knowledge Test Total Score:: 15 COPD Assessment Test [CAT] - Questions Never cough = 0, Cough all the time = 5: 1 No phlegm = 0, Chest full of phlegm = 5: 2 No chest tightness = 0, Chest very tight = 5: 1 No breathless w/exertion = 0, Very breathless w/exertion = 5: 2 No limitations w/activity = 0, Very limited w/activity = 5: 1 Confident leaving home = 0, Not at all confident = 5: 0 Sleep soundly = 0, Don't sleep soundly = 5: 1 Lots of energy = 0, No energy at all = 5: 1 Total CAT score:: 9 Self-Efficacy Discharge Assessment We would like to know how confident you are in doing certain activities. Please select your confidence level for:: Select your confidence level for the following using the scale 1-10 where 1 is not at all confident and 10 is totally confident. Your score is the average of all 6 responses. Fatigue: How confident are you that you can keep the fatigue caused by your disease from interfering with the things you want to do? Select Number: 10 Physical Discomfort or Pain: How confident are you that you can keep the physical discomfort or pain of your disease from interfering with the things you want to do? Select Number: 10 Emotional Distress: How confident are you that you can keep the emotional distress caused by your disease from interfering with the things you want to do? Select Number: 10 Other Symptoms or Health Problems: How confident are you that you can keep other symptoms or health problems from interfering with the things you want to do? Select Number: 10 Different Tasks and Activities: How confident are you that you can do the different tasks and activities needed to manage your health condition so as to reduce your need to see a doctor? Select Number: 10 Medication: How confident are you that you can do things other than just taking medication to reduce how much your illness affects your everyday life? Select Number: 10 Total Score:: 10 Nutrition Survey - Nutrition Survey Instructions Scoring Instructions: Scoring is as follows: Yes = 1 points. No = 0 point. Patient score that is >/=12 is considered to be at potential nutritional risk and could benefit from a referral to a registered dietitian. - Nutrition Survey Discharge Have you lost >10 lbs over the past 2 months without trying?: No Are you following a special diet at home for diabetes, low fat, or low salt?: No Are you interested in meeting with a dietitian for help understanding your diet? : No Do you eat less than 3 meals a day?: Yes Do you eat fatty meats (still, sausage, ribs, etc), fried foods, desserts, large amounts of salad dressings, margarine, butter, or cheese most days?: Yes Do you have food allergies? [Enter types in comment field]: No Do you eat in restaurants more than 3 times a week?: No Do you season food with salt, seasoning salt, or garlic salt?: No Do you used canned, boxed, frozen meals, or soups, seasoning packets?: Yes Total Score:: 3
== END 2017-08-21 23:59 ==
LOC: PR 08:00
PROVIDERS: Family Provider Family Medicine; PCP Family Medicine; Visit Provider Internal Medicine Pulmonary Disease
DX: J44.9 Chronic obstructive pulmonary disease, unspecified (principal)
CPT/HCPCS: 97150; G0424

== ENCOUNTER 2018-08-24 11:19 | Emergency (ER) | payer MEDICARE, OTHER, SELFPAY ==
[2018-08-24 11:20] VITALS: BP 158/87; PULSE 67; RESP 18; TEMP 37.1; O2SAT 92; BMI 32.1
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
--- NOTE | 2018-08-24 13:25 | ED.DEP ---
ED Disposition - Plan for ED Patient: Instructions: ED Concussion, Tinnitus (Ringing in the Ears), ED Sprain Strain Neck Referrals: Ming Samson MD [Primary Care Provider] - 5-7 Days Ming Ware MD [STAFF PHYSICIAN] - 3-5 Days
[2018-08-24 13:31] VITALS: BP 135/79; PULSE 75; RESP 16; O2SAT 98
== END 2018-08-24 13:32 | disposition home or self-care (01) ==
PROVIDERS: Emergency Provider Emergency Medicine; Family Provider Family Medicine; PCP Family Medicine
DX: F07.81 Postconcussional syndrome (principal); H93.13 Tinnitus, bilateral; S16.1XXA Strain of muscle, fascia and tendon at neck level, initial encounter; V89.2XXA Person injured in unspecified motor-vehicle accident, traffic, initial encounter; Y93.9 Activity, unspecified; Y92.9 Unspecified place or not applicable; J44.9 Chronic obstructive pulmonary disease, unspecified; E78.00 Pure hypercholesterolemia, unspecified; I10 Essential (primary) hypertension; Z79.899 Other long term (current) drug therapy; Z72.0 Tobacco use
CPT/HCPCS: 70450; 72125; 99282

== ENCOUNTER 2019-01-22 14:56 | Inpatient (IN) | payer MEDICARE, OTHER, SELFPAY ==
[2019-01-22] VITALS (14 sets, daily range): BP systolic 116–151; BP diastolic 65–87; PULSE 88–116; RESP 14–24; TEMP 36.3–36.7; O2SAT 90–95; BMI 30.5; BMI 30.3
[2019-01-22] MEDS: Ipratropium/Albuterol Sulfate 3 ML AMPUL.NEB INHALATION ×3 (15:04→23:53)
--- NOTE | 2019-01-22 15:04 | EKG12_ITS ---
Test Reason : Blood Pressure : / mmHG Vent. Rate : 094 BPM Atrial Rate : 094 BPM P-R Int : 254 ms QRS Dur : 078 ms QT Int : 378 ms P-R-T Axes : 024 055 074 degrees QTc Int : 472 ms Somatic/Motion Artifact Sinus rhythm with premature supraventricular complexes Low Voltage QRS (Limb Leads) Borderline ECG Confirmed by MARGARITO ANDRADE, LOI ([id number]), online content editor ABEBA MCNAMARA ([id number]) on 01/25/2019 10:05:01 AM Referred By: JAYLAN Confirmed By:LOI PIMENTEL MD
--- NOTE | 2019-01-22 15:06 | ED.DCSUM_ITS ---
History of Present Illness Chief Complaint: Shortness of Breath Informant: Patient Onset: Days Context: Gradual Onset Timing: Continuous Current Severity: Moderate Maximum Severity: Severe Narrative: The patient is a 63-year-old female with medical history first COPD who is on 2 L of oxygen at night and hypertension who presents to the emergency department shortness of breath. The patient states her symptoms began on Friday. She states she had a scant cough. She states that since then her symptoms have been worsening. She states she feels like she cannot catch her breath. She went to urgent care on Friday and was diagnosed with a COPD exacerbation. She states she returned because she felt like she can breathe today. She states that she quit smoking 2 days ago. She denies any chest pain. She has had productive sputum. She does not think she is had fever. Prior similar symptoms: Yes Recent Illness/Hospitalization: No Past Medical History - Allergies and Home Meds Allergies/Adverse Reactions: Allergies cephalexin [From Keflex] Allergy (Verified 01/22/19 15:33) Hives erythromycin base [From Erythrocin] Allergy (Verified 01/22/19 15:33) Hives atorvastatin [From Lipitor] Adverse Reaction (Verified 01/22/19 15:33) Other bupropion Adverse Reaction (Verified 01/22/19 15:33) Other varenicline [From Chantix] Adverse Reaction (Verified 01/22/19 15:33) Other Primary Care Physician: Ming Samson MD [Primary Care Provider] - Prior records reviewed: Yes Past Medical History: - - COPD, hypertension Smoking Status: Current every day smoker Review of Systems General: Denies: Chills, Fever, Sweats Eyes: Denies: Visual changes - bilaterally, Diplopia ENT: Denies: Rhinorrhea, Sore throat Cardiovascular: Denies: Chest pain, Palpitations Respiratory: Reports: Cough, Sputum, Dyspnea on exertion. Denies: Dyspnea Gastrointestinal: Denies: Abdominal pain, Nausea, Vomiting, Diarrhea, Melena, Hematochezia Genitourinary: Denies: Dysuria, Hematuria, Frequency Musculoskeletal: Denies: Back pain, Extremity Pain Skin: Denies: Rash, Wounds Neurological: Denies: Headache, Weakness, Numbness Physical Exam Vital Signs/Narrative: Vital Signs Temp Pulse Resp BP Pulse Ox 01/22/19 14:57 98.1 F 93 22 H 133/87 H 93 Inital Vital Signs reviewed: Yes General: Well nourished, Well developed, No Acute Distress Head: Normocephalic, Atraumatic Eyes: Perrl, EOMI ENT: Moist mucous membranes, No rhinorrhea Neck: Supple, Nontender Cardiovascular: Regular rate, Regular rhythm, No murmurs Respiratory: Chest nontender, Wheezing, Diminished, Decreased Air Movement Abdomen: Soft, Nontender, Nondistended, Normal bowel sounds Back: Nontender, Normal Inspection Extremities: Nontender, No edema Skin: Normal color, No rash Neurological: Alert, Oriented x3, Cranial nerves II-XII grossly intact, Normal Strength, Normal Sensation Psychological: Normal affect, Normal Mood Diagnostic/Tx/Re-eval Clinical Impression(s) from Imaging Studies Chest X-Ray 01/22/19 15:48 IMPRESSION: Diffuse increased interstitial markings throughout the lungs which are of uncertain chronicity. No focal infiltrates. No pleural effusions. Electronically Signed: Bird Apple, at 16:21 EDT Tel , Service support , Abnormal Lab Results 01/22/19 01/22/19 01/22/19 15:40 15:46 15:46 WBC 25.0 H RBC 4.79 Hgb 14.6 Hct 43.7 MCV 91.2 MCH 30.5 MCHC 33.4 RDW Std Deviation 43.8 RDW Coeff of Saad 13.1 Plt Count 370 MPV 9.7 Immature Gran % (Auto) 1.200 H Neut % (Auto) 89.4 H Lymph % (Auto) 4.8 L Loving % (Auto) 4.4 Eos % (Auto) 0.0 Baso % (Auto) 0.2 Absolute Neuts (auto) 22.3 H Absolute Lymphs (auto) 1.21 Nucleated RBC % 0 Sodium 131 L Potassium 3.1 L Chloride 84 L Carbon Dioxide 38.0 H Anion Gap 9 BUN 13 Creatinine 0.56 Estim Creat Clear Calc 119.77 Est GFR (MDRD) Af Amer 138 Est GFR (MDRD) Non-Af 114 BUN/Creatinine Ratio 23.0 H Glucose 110 H Lactic Acid 1.4 Calcium 9.9 - Rhythm Strip Rhythm Strip: Sinus Tach Rate: 110 Ectopy: None - EKG Initial EKG Interpretation: No Acute Injury Pattern, Sinus Tachycardia Prior: Unchanged - Medical Decision Making The patient presents to the emergency department cough and shortness of breath. She does have wheezing in all lung fraga. Patient was given nebulized breathing treatments, steroids, and fluids. She did have some improvement of her aeration but still had persistent bronchospasm and tachypnea. Her chest x- ray does not show focal infiltrate. However, she does have a marked leukocytosis of 25,000 and has not been on recent steroids. Given her persistent elevated work of breathing and dyspnea I do feel that she would benefit from admission. She was covered with antibiotics. The patient was discussed with the hospitalist who agrees with plan of care. Impression 1. COPD exacerbation with persistent bronchospasm and tachypnea ED Disposition - Plan for ED Patient: Referrals: Ming Samson MD [Primary Care Provider] -
[2019-01-22] MEDS: 0.9% Normal Saline 1,000 ML 150 ML IV (15:37)
[2019-01-22] MEDS: MethylPREDNISolone 125 MG/2 ML Vial IV (15:37)
--- NOTE | 2019-01-22 15:48 | RAD_ITS ---
STUDY: X-RAY CHEST REASON FOR EXAM: Female, 63 years old. Shortness of breath TECHNIQUE: Frontal and lateral views of the chest COMPARISON: None. FINDINGS: There are diffuse increased interstitial markings noted throughout the lungs. There are no focal infiltrates. There are no pleural effusions. There is no pneumothorax. The heart is normal in size. The visualized osseous structures are within normal limits. RAD/Chest PA and Lateral IMPRESSION: Diffuse increased interstitial markings throughout the lungs which are of uncertain chronicity. No focal infiltrates. No pleural effusions. Electronically Signed: Bird Apple, at 16:21 EDT Tel , Service support ,
[2019-01-22 16:03] LABS: Absolute Lymphocyte Count 1.21 X10^3/uL (0.83-4.51); Absolute Neutrophil Count 22.3 X10^3/uL (2.0-7.7); Basophil# 0.06 X10^3/uL; Basophil% 0.2 % (0-1); Eosinophil# 0.01 X10^3/uL; Hematocrit 43.7 % (37-47); Hemoglobin 14.6 g/dL (12.0-15.0); Lymphocyte # 1.21 X10^3/ul (4.0); Lymphocyte % 4.8 % (19-41); Mean Corp Hgb Conc 33.4 g/dL (32-36); Mean Corpuscular Hgb 30.5 pg (27.0-32.0); Mean Corpuscular Volume 91.2 fL (81-99); Mean Platelet Vol. 9.7 fl (6.2-12.0); Monocyte% 4.4 % (0-10); NRBC Flagged by Analyzer 0 % (0-5); Neutrophil # 22.29 X10^3/uL (2.7-7.7); Neutrophil % 89.4 % (47-70); POSITIVE DIFFERENTIAL YES; Platelet Count 370 K/mm3 (150-450); RBC Distribution Width CV 13.1 % (11.6-14.6); RBC Distribution Width SD 43.8 fl (35.1-43.9); Red Blood Count 4.79 M/mm3 (4.2-5.4)
[2019-01-22] MEDS: Albuterol 2.5 MG/3 ML VIAL.NEB. INHALATION ×3 (16:04)
[2019-01-22 16:07] LABS: Anion Gap 9 (5-15); BUN 13 mg/dL (7-18); Calcium,Total 9.9 mg/dL (8.5-10.1); Chloride 84 mmol/L (98-107); Creatinine, Serum 0.56 mg/dL (0.55-1.02); EST Glomerular Filtration Rate 114 mL/min (>60); Est Glom Filt Rate - Afr Amer 138 mL/min (>60); Estimated Creatinine Clearance 119.77 ml/min; Glucose 110 mg/dL (74-106); Potassium 3.1 mmol/L (3.5-5.1); Sodium Level 131 mmol/L (136-145)
[2019-01-22 16:12] LABS: Lactic Acid 1.4 mmol/L (0.4-2.0)
[2019-01-22 16:16] LABS: Differential Indicated SCAN CRITERIA MET
--- NOTE | 2019-01-22 16:20 | ED.RN ---
LACTIC AND CULTURE ALREADY OBTAINED, SEPSIS SCREENING INITIATED.
--- NOTE | 2019-01-22 17:00 | NURSING ---
MED SURG JOPPERI COPD EXAC
[2019-01-22 17:04] LABS: Platelet Estimate ADEQUATE (ADEQ); Red Cell Morphology NORM C+C NORMAL (NORM C&C)
--- NOTE | 2019-01-22 17:31 | HP.PCM_ITS ---
Problem List (1) COPD exacerbation Status: Acute History of Present Illness Date of Admission: 01/22/19 Chief Complaint: shortness of breath The patient is a 63 year old F Oksana with a several day history of increasing shortness of breath, cough and sputum production. Patient is active smoker but quit about 2 days ago. This is consistent with her prior episodes of COPD exacerbation. Patient has been using her bronchodilators without any relief. Patient presented to the emergency room, had a chest x-ray that was unremarkable, received bronchodilators, 125 mg of methylprednisolone and IV doxycycline. [] Past Medical History Medical History: Medical History (Last Updated 01/22/19 @ 17:34 by Lyndon Marie DO) Hyperlipidemia E78.5 COPD (chronic obstructive pulmonary disease) J44.9 HTN (hypertension) I10 Allergies cephalexin [From Keflex] Allergy (Verified 01/22/19 15:33) Hives erythromycin base [From Erythrocin] Allergy (Verified 01/22/19 15:33) Hives atorvastatin [From Lipitor] Adverse Reaction (Verified 01/22/19 15:33) Other bupropion Adverse Reaction (Verified 01/22/19 15:33) Other varenicline [From Chantix] Adverse Reaction (Verified 01/22/19 15:33) Other Home Medications: Ambulatory Orders Medication Instructions Recorded Cetirizine HCl [Zyrtec] 10 mg PO DAILY 04/17/17 Hydrochlorothiazide [Hctz] 25 mg PO DAILY 04/17/17 Lisinopril [Zestril] 20 mg PO DAILY 04/17/17 Multivit-Min/FA/Lycopen/Lutein 2 tab PO MOTUWETHFRSA 04/17/17 [Adults 50+ Multivitamin Tablet] Simvastatin [Zocor] 20 mg PO QHS 04/17/17 Ubidecarenone [Coq10] 100 mg PO MOTUWETHFRSA 04/17/17 Umeclidinium Brm/Vilanterol Tr 1 inhaler INHALATION DAILY 08/24/18 [Anoro Ellipta 62.5-25 Mcg INH] Albuterol Sulfate [Ventolin Hfa] 2 puff INHALATION 4X/DAY 01/22/19 Echinacea & Astragalus 3 tab PO MOTUWETHFRSA 01/22/19 Garlic 1,000 mg PO MOTUWETHFRSA 01/22/19 Guaifenesin [Mucinex] 600 mg PO BID 01/22/19 Magnesium Oxide [Magnesium] 500 mg PO MOTUWETHFRSA 01/22/19 Flomaton-3 Fatty Acids/Fish Oil [Fish 1 cap PO MOTUWETHFRSA 01/22/19 Oil 1,000 mg Capsule] Verapamil [Calan Sr] 180 mg PO DAILY 01/22/19 Surgical History: Surgical History (Last Updated 01/22/19 @ 17:35 by Lyndon Marie DO) H/O tubal ligation Z98.51 H/O wrist surgery Z98.890 History of ankle surgery Z98.890 Smoking Status: Light Smoker (<10/day) - States she just quit 2 days ago Tobacco Use: Cigarettes Alcohol: None Drugs: None - *Family History Sibling History Items: - - no COPD Review of Systems Constitutional: Denies: Anorexia, Chills, Fever Eyes: Denies: Blurred vision, Double vision HEENT: Denies: Head Aches, Sinus Congestion, Sinus Drainage Cardiovascular: Reports: Chest Pain - With coughing. Denies: Edema Respiratory: Reports: Cough, Shortness of Breath, Sputum production Gastrointestinal: Denies: Abdominal Pain, Nausea, Vomiting Genitourinary: Denies: Dysuria Musculoskeletal: Denies: Joint Pain, Joint Tenderness Skin: Denies: Rash, Wounds Neurological: Denies: Numbness, Tingling, Focal weakness Psychiatric: Denies: Anxiety, Depression Endocrine: Denies: Change in Body Habitus, Heat/ Cold Intolerance Hematologic/ Lymphatic: Denies: Easy Bruising, Easy Bleeding, Hx of blood clot Comment: All review systems are otherwise negative except for as mentioned above and in HPI. VTE Information - Inpt Only VTE Present on Admission: No VTE Mechan Device Prophylaxis: None VTE Pharm Prophylaxis ordered?: Yes Patient Problems: Active and Suspected Problems COPD exacerbation (Acute) - Physical Exam Vitals/I&O's: Vital Signs Temp Pulse Resp BP Pulse Ox 36.3 C L 104 H 14 116/67 94 01/22/19 17:26 01/22/19 17:26 01/22/19 17:26 01/22/19 17:26 01/22/19 17:26 Oxygen Flow Rate (L/min) 2 Oxygen Delivery Method Nasal Cannula Weight: 75.75 kg Body Mass Index (BMI) 30.5 General: Alert, Cooperative, - - Vision is in a chair next her bed and patient is propped over with her elbows on the bed leaning forward. On oxygen. No obvious respiratory distress no conversational dyspnea. HEENT: Atraumatic, Normocephalic, - - Sinus tenderness Oral: Moist Mucosa, No Gingival or Mucosal Lesions/ Ulcerations Neck: No Nodes, Trachea Midline Lungs: No wheeze, Diminished Cardiovascular: Regular rate, Regular Rhythm, Normal S1, Normal S2, No murmurs Abdomen: Bowel Sounds Present, Soft, Non Tender, Non-Distended Extremities: No edema, No Calf Tenderness Skin: No rashes, No breakdown Musculoskeletal: No Tenderness to Palpation of Joints or Extremities, No Muscle Wasting Neurological: Neuro grossly intact, Muscle tone normal, Sensory exam intact to light touch and pain Psych/Mental Status: Normal Affect, Appropriate Laboratory Results 01/22/19 15:40: Lactic Acid 1.4 01/22/19 15:46: WBC 25.0 H, RBC 4.79, Hgb 14.6, Hct 43.7, MCV 91.2, MCH 30.5, MCHC 33.4, RDW Std Deviation 43.8, RDW Coeff of Saad 13.1, Plt Count 370, MPV 9.7, Immature Gran % (Auto) 1.200 H, Neut % (Auto) 89.4 H, Lymph % (Auto) 4.8 L, Hawkins % (Auto) 4.4, Eos % (Auto) 0.0, Baso % (Auto) 0.2, Absolute Neuts (auto) 22.3 H, Absolute Lymphs (auto) 1.21, Nucleated RBC % 0, Differential Comment , Platelet Estimate ADEQUATE, RBC Morphology NORM C+C 01/22/19 15:46: Sodium 131 L, Potassium 3.1 L, Chloride 84 L, Carbon Dioxide 38.0 H, Anion Gap 9, BUN 13, Creatinine 0.56, Estim Creat Clear Calc 119.77, Est GFR (MDRD) Af Amer 138, Est GFR (MDRD) Non-Af 114, BUN/Creatinine Ratio 23.0 H, Glucose 110 H, Calcium 9.9 Chest x-ray reviewed and shows on diaphragms. No pulmonary edema. No infiltrates. Current Medications Sodium Chloride () 1,000 mls @ 150 mls/hr IV .[id number] ONE Stop: 01/22/19 21:43 Last Admin: 01/22/19 15:37 Dose: 150 mls/hr Documented by: Doxycycline Hyclate 100 mg/ (Dextrose) 260 mls @ 250 mls/hr IV X1 ONE Stop: 01/22/19 17:51 Last Admin: 01/22/19 17:06 Dose: 250 mls/hr Documented by: Sodium Chloride () 10 - 40 ml IV UD PRN PRN Reason: SALINE FLUSH Assessment/Plan All Active Problems COPD exacerbation (Acute) 1. Acute exacerbation of COPD * Plan is to continue with methylprednisolone 40 mg every 8 hours plus bronchodilators. With patient expectorating sputum, I also put her on azithromycin 500 mg daily. Patient did receive doxycycline in the ER today and then will start the azithromycin on the second. * Patient still actively smoking though she states that she is quit completely but that was only 2 days ago. We will have some smoking cessation information provided to her 2. Hypokalemia * Likely secondary to the HCTZ that she is on * Ordered for her to have 40 MeQi of potassium chloride * Check magnesium and replace of low 3. Hypertension * Stable at this time * Continue with HCTZ and lisinopril 4. VTE prophylaxis: Moderate risk. Patient will be on enoxaparin. 5. Advanced care planning: Patient wishes to have CPR in event of cardiac arrest but does not want to be intubated in the event that she has respiratory arrest. Code Visit Inpatient E&M: 64715 Init Hosp L3
[2019-01-22] MEDS: Ibuprofen 400 MG Tablet PO (18:50)
[2019-01-22] MEDS: guaiFENesin 600 MG Tablet PO (21:11)
[2019-01-22] MEDS: Simvastatin 20 MG Tablet PO (21:13)
[2019-01-22] MEDS: BENZOCAINE/MENTHOL 1 LOZENGE MUCOUS MEM (23:21)
[2019-01-22] MEDS: Acetaminophen 325 MG Tablet 650 MG PO (23:21)
[2019-01-22] MEDS: MELATONIN 3 MG TABLET PO (23:21)
[2019-01-23] VITALS (16 sets, daily range): BP systolic 136–147; BP diastolic 66–80; PULSE 80–95; RESP 18–24; TEMP 36.3–36.8; O2SAT 92–94
[2019-01-23] MEDS: 0.9% Saline Lock 10 ML Syringe IV ×4 (01:32→21:38)
[2019-01-23] MEDS: BENZOCAINE/MENTHOL 1 LOZENGE MUCOUS MEM (05:07)
[2019-01-23] MEDS: Albuterol 2.5 MG/3 ML VIAL.NEB. INHALATION (05:29)
[2019-01-23 07:18] LABS: Absolute Lymphocyte Count 1.01 X10^3/uL (0.83-4.51); Absolute Neutrophil Count 21.3 X10^3/uL (2.0-7.7); Basophil# 0.04 X10^3/uL; Basophil% 0.2 % (0-1); Hematocrit 39.9 % (37-47); Hemoglobin 13.6 g/dL (12.0-15.0); Lymphocyte # 1.01 X10^3/ul (4.0); Lymphocyte % 4.4 % (19-41); Mean Corp Hgb Conc 34.1 g/dL (32-36); Mean Corpuscular Hgb 30.4 pg (27.0-32.0); Mean Corpuscular Volume 89.3 fL (81-99); Mean Platelet Vol. 9.7 fl (6.2-12.0); Monocyte# 0.21 X10^3/uL; Monocyte% 0.9 % (0-10); NRBC Flagged by Analyzer 0 % (0-5); Neutrophil # 21.34 X10^3/uL (2.7-7.7); Neutrophil % 92.7 % (47-70); POSITIVE DIFFERENTIAL YES; Platelet Count 316 K/mm3 (150-450); RBC Distribution Width CV 12.9 % (11.6-14.6); RBC Distribution Width SD 42.5 fl (35.1-43.9); Red Blood Count 4.47 M/mm3 (4.2-5.4)
[2019-01-23 07:19] LABS: Differential Indicated SCAN CRITERIA MET
[2019-01-23 07:46] LABS: Anion Gap 6 (5-15); BUN 13 mg/dL (7-18); BUN/Creat Ratio 31.2 RATIO (10-20); Chloride 88 mmol/L (98-107); Creatinine, Serum 0.42 mg/dL (0.55-1.02); EST Glomerular Filtration Rate 162 mL/min (>60); Est Glom Filt Rate - Afr Amer 196 mL/min (>60); Estimated Creatinine Clearance 105.62 ml/min; Glucose 130 mg/dL (74-106); Magnesium 1.8 mg/dL (1.6-2.6); Sodium Level 129 mmol/L (136-145)
[2019-01-23 08:09] LABS: Differential Comment SCANNED
[2019-01-23] MEDS: Loratadine 10 MG Tablet PO (09:32)
[2019-01-23] MEDS: Multivitamins,Ther W-Minerals Tablet 1 TABLET PO (09:32)
[2019-01-23] MEDS: Enoxaparin 40 MG/0.4 ML Syringe SC (09:33)
[2019-01-23] MEDS: hydroCHLOROthiazide 25 MG Tablet PO (09:33)
[2019-01-23] MEDS: Omega-3 Acid Ethyl Esters 1 GM Capsule PO (09:33)
[2019-01-23] MEDS: guaiFENesin 600 MG Tablet PO ×2 (09:34→21:34)
[2019-01-23] MEDS: Magnesium Oxide 400 MG Tablet PO (09:34)
[2019-01-23] MEDS: Lisinopril 20 MG Tablet PO (09:35)
[2019-01-23] MEDS: Ipratropium/Albuterol Sulfate 3 ML AMPUL.NEB INHALATION ×4 (10:54→23:23)
--- NOTE | 2019-01-23 14:26 | PN_ITS ---
Patient Problems: Active and Suspected Problems (Last Updated 01/22/19 @ 17:34 by Lyndon Marie DO) COPD exacerbation (Acute) Subjective: She is having sputum production still, but she says that she is feeling a little bit better especially with the oxygen. Vitals/I&O's: Vital Signs Temp Pulse Resp BP Pulse Ox 98.3 F 89 20 H 147/80 H 93 01/23/19 14:06 01/23/19 14:06 01/23/19 14:06 01/23/19 14:06 01/23/19 14:06 Oxygen Flow Rate (L/min) 3 Oxygen Delivery Method Nasal Cannula Weight: 165 lb 11.191 oz Body Mass Index (BMI) 30.3 Intake and Output for Last 24 Hours 01/21/19 01/22/19 01/23/19 23:59 23:59 23:59 Intake Total 992.5 / 1592.5 1477.5 / 1477.5 Balance 992.5 / 1592.5 1477.5 / 1477.5 General: Alert, Oriented x3, Cooperative, No apparent distress HEENT: Atraumatic, PERRLA, EOMI, Normocephalic Oral: Moist Mucosa Neck: Supple, No JVD Lungs: No rhonchi, No wheeze, No rales, - - Very little air movement Cardiovascular: Regular rate, Regular Rhythm, Normal S1, Normal S2, No murmurs Abdomen: Soft, Non Tender, Non-Distended, No Hepato-splenomegaly Extremities: No edema, Capillary Refill Less than 3 Seconds Skin: No rashes, No breakdown Neurological: Neuro grossly intact, Sensory exam intact to light touch and pain Psych/Mental Status: Normal Affect, Appropriate Microbiology Past 72 Hours 01/22/19 19:15 Sputum, Expectorated/Coughed Respiratory Culture - Preliminary Appears to be normal respiratory jesus. Further studies to follow. Laboratory Results 01/22/19 15:40: Lactic Acid 1.4 01/22/19 15:46: WBC 25.0 H, RBC 4.79, Hgb 14.6, Hct 43.7, MCV 91.2, MCH 30.5, MCHC 33.4, RDW Std Deviation 43.8, RDW Coeff of Saad 13.1, Plt Count 370, MPV 9.7, Immature Gran % (Auto) 1.200 H, Neut % (Auto) 89.4 H, Lymph % (Auto) 4.8 L, Mccreary % (Auto) 4.4, Eos % (Auto) 0.0, Baso % (Auto) 0.2, Absolute Neuts (auto) 22.3 H, Absolute Lymphs (auto) 1.21, Nucleated RBC % 0, Differential Comment , Platelet Estimate ADEQUATE, RBC Morphology NORM C+C 01/22/19 15:46: Sodium 131 L, Potassium 3.1 L, Chloride 84 L, Carbon Dioxide 38.0 H, Anion Gap 9, BUN 13, Creatinine 0.56, Estim Creat Clear Calc 119.77, Est GFR (MDRD) Af Amer 138, Est GFR (MDRD) Non-Af 114, BUN/Creatinine Ratio 23.0 H, Glucose 110 H, Calcium 9.9 01/23/19 06:50: WBC 23.0 H, RBC 4.47, Hgb 13.6, Hct 39.9, MCV 89.3, MCH 30.4, MCHC 34.1, RDW Std Deviation 42.5, RDW Coeff of Saad 12.9, Plt Count 316, MPV 9.7, Immature Gran % (Auto) 1.800 H, Neut % (Auto) 92.7 H, Lymph % (Auto) 4.4 L, Mccreary % (Auto) 0.9, Eos % (Auto) 0.0, Baso % (Auto) 0.2, Absolute Neuts (auto) 21.3 H, Absolute Lymphs (auto) 1.01, Nucleated RBC % 0, Differential Comment SCANNED 01/23/19 06:50: Sodium 129 L, Potassium 4.0, Chloride 88 L, Carbon Dioxide 35.0 H, Anion Gap 6, BUN 13, Creatinine 0.42 L, Estim Creat Clear Calc 105.62, Est GFR (MDRD) Af Amer 196, Est GFR (MDRD) Non-Af 162, BUN/Creatinine Ratio 31.2 H, Glucose 130 H, Calcium 9.0, Magnesium 1.8 Current Medications Acetaminophen (Tylenol) 650 mg PO Q6H PRN PRN PRN Reason: Pain Score 1-3/Temp > 100.7 F Last Admin: 01/22/19 23:21 Dose: 650 mg Documented by: Albuterol Sulfate (Ventolin Aerosols) 2.5 mg INHALATION Q2H PRN PRN PRN Reason: SHORTNESS OF BREATH Last Admin: 01/23/19 05:29 Dose: 2.5 mg Documented by: Albuterol/Ipratropium (Duoneb) 3 ml INHALATION Q4H.RT [facility] Last Admin: 01/23/19 10:54 Dose: 3 ml Documented by: Dextrose (D50w Syringe) 0 gm IV X1 PRN; Protocol PRN Reason: Hypoglycemia Enoxaparin Sodium (Lovenox) 40 mg SC DAILY@1000 [facility] Last Admin: 01/23/19 09:33 Dose: 40 mg Documented by: Glucagon () 1 mg IM .X1 PRN PRN Reason: Hypoglycemia Guaifenesin (Mucinex) 600 mg PO BID [facility] Last Admin: 01/23/19 09:34 Dose: 600 mg Documented by: Hydrochlorothiazide (Hctz) 25 mg PO DAILY [facility] Last Admin: 01/23/19 09:33 Dose: 25 mg Documented by: Azithromycin 500 mg/ Dextrose 255 mls @ 250 mls/hr IV Q24 [facility] Last Infusion: 01/23/19 10:42 Dose: Infused Documented by: Sodium Chloride () 250 mls @ 15 mls/hr IV .[id number] PRN PRN Reason: Saline Flush Ibuprofen (Motrin) 400 mg PO Q4H PRN PRN PRN Reason: Pain Score 1-3/Temp > 100.7 F Last Admin: 01/22/19 18:50 Dose: 400 mg Documented by: Lisinopril (Zestril) 20 mg PO DAILY [facility] Last Admin: 01/23/19 09:35 Dose: 20 mg Documented by: Loratadine (Claritin) 10 mg PO DAILY [facility] Last Admin: 01/23/19 09:32 Dose: 10 mg Documented by: Magnesium Oxide (Mag-Ox 400) 400 mg PO MoTuWeThFrSa@1000 [facility] Last Admin: 01/23/19 09:34 Dose: 400 mg Documented by: Melatonin (Melatonin) 3 mg PO QHS PRN PRN PRN Reason: INSOMNIA Last Admin: 01/22/19 23:21 Dose: 3 mg Documented by: Methylprednisolone (Solu-Medrol) 40 mg IV Q8 [facility] Last Admin: 01/23/19 13:43 Dose: 40 mg Documented by: Multivitamins/Minerals (Multivitamin With Minerals) 1 tablet PO MoTuWeThFrSa [facility] Last Admin: 01/23/19 09:32 Dose: 1 tablet Documented by: Nutritional Formula (Lactose Free) (Ensure Enlive) 120 ml PO 4X/DAY [facility] Last Admin: 01/23/19 13:43 Dose: Not Given Documented by: [id number] Ethyl Esters (Lovaza) [facility]m [facility] Last Admin: 01/23/19 09:33 Dose: 1 gm Documented by: Ondansetron HCl (Zofran) 4 mg IV Q8H PRN PRN PRN Reason: NAUSEA/VOMITING Simvastatin (Zocor) 20 mg PO QHS [facility] Last Admin: 01/22/19 21:13 Dose: 20 mg Documented by: Sodium Chloride () 10 - 40 ml IV UD PRN PRN Reason: SALINE FLUSH Last Admin: 01/23/19 13:43 Dose: 10 ml Documented by: Throat Lozenges (Cepacol Sore Throat Lozenge) 1 lozenge MUCOUS MEM Q2H PRN PRN PRN Reason: Sore throat or cough Last Admin: 01/23/19 05:07 Dose: 1 lozenge Documented by: Verapamil HCl (Calan Sr) 180 mg PO DAILY@2200 [facility] STROKE Vital Signs/Narrative: Vital Signs Temp Pulse Resp BP Pulse Ox 01/23/19 14:06 98.3 F 89 20 H 147/80 H 93 01/23/19 13:59 89 18 93 01/23/19 10:54 87 24 H Medical Necessity - Tobacco Use Smoking Status: Light Smoker (<10/day) Tobacco Use: Cigarettes Assessment/Plan All Active Problems (Last Updated 01/22/19 @ 17:34 by Lyndon Marie DO) COPD exacerbation (Acute) 1. Acute COPD exacerbation -Continue with Solu-Medrol 40 mg IV 3 times daily -Continue with inhaler medication -We will continue to advise smoking cessation, in the meantime we will provide a nicotine patch -Continue with azithromycin as she is having sputum production despite being afebrile. She does have a leukocytosis to 23 today 2. Hypokalemia-resolved 3. HTN/HLD -Blood pressures are stable -Continue with her home blood pressure medication -Continue with statin DVT: Lovenox Code Visit Inpatient E&M: 82127 Subs Hosp L2
--- NOTE | 2019-01-23 15:25 | CASEMGMT ---
SOCIAL WORK UPDATED BY DRY HEAT CABINET ATTENDANT, SADA. PATIENT REQUESTING INFORMATION ON ADVANCED DIRECTIVES. THIS WORKER TO PATIENT'S ROOM, FAMILY AT BEDSIDE. PATIENT IN RESTROOM AT THIS TIME. INTRODUCED ROLE. FAMILY STATES WILL TAKE INFORMATION FOR PATIENT. RACK CARD FOR ADVANCED DIRECTIVES PROVIDED ALONG WITH FORMS. INFORMED IF PATIENT WISHES TO COMPLETE WHILE IN THE HOSPITAL ABLE TO DO SO. NO FURTHER QUESTIONS AT THIS TIME. Pradeep BLOOD, NEMATOLOGIST, SUPERVISOR SLASHING DEPARTMENT.
--- NOTE | 2019-01-23 15:27 | CM.UR ---
RN CM Assessment Introduced role of RN CM to patient. Patient is alert and able to participate in RN CM Assessment. She was standing at window upon my entry watching the helicopter take off. She ambulated well to chair and sat down for assessment. Care providers, pharmacy, and demographics verified. No family at bedside. Presentation: Increased sob and cough Admit Dx: COPD Exacerbation Re-Admit: no Barriers/Issues: None noted PCP: [place] Specialists: States [facility] for pulmonary but seeing someone else in February. She couldn't remember the name. Preferred Pharmacy: [facility] Insurance: [employer] and [employer] Supplement Rx Benefit: yes through supplement. LNOK: Sumi Sanchez, daughter LW/HPOA: None. Discussed with her and she was agreeable to booklet and asked for the forms. Explained she can complete them while here and that I will alert the SW. Explained if discharged before done that she can call into the hospital and ask to talk to SW to see if can come in to complete. Verb understanding. Did alert YEIMI Mcghee on today and she agreed to stop by and talk to patient. Living Arrangements: Lives in [place] home with 3 wide steps to enter. States she was using a walker after an accident in the paste and she had wide steps placed. ADL?s: States she is totally independent normally. Transportation: Drives self. DME: Walker, grab bars and O2 from [facility]. Currently uses o2 only at night. DME co: [employer] HHC: None SNF: None Goal: Wants to return home. DC PLAN: Home. Only possible need is nebulizer. States she does not have one at home. Lindsey Baird, ASHUTOSH, CCM.
[2019-01-23] MEDS: Verapamil SR 180 MG CAPSULE PO (21:34)
[2019-01-23] MEDS: Simvastatin 20 MG Tablet PO (21:38)
[2019-01-24] VITALS (13 sets, daily range): BP systolic 107–137; BP diastolic 50–76; PULSE 80–98; RESP 16–22; TEMP 36.7–36.9; O2SAT 85–97
[2019-01-24] MEDS: Ipratropium/Albuterol Sulfate 3 ML AMPUL.NEB INHALATION ×4 (03:58→23:18)
[2019-01-24] MEDS: 0.9% Saline Lock 10 ML Syringe IV ×2 (05:13→14:09)
[2019-01-24 05:17] LABS: Absolute Lymphocyte Count 1.27 X10^3/uL (0.83-4.51); Basophil# 0.12 X10^3/uL; Basophil% 0.4 % (0-1); Hematocrit 42.7 % (37-47); Hemoglobin 14.1 g/dL (12.0-15.0); Lymphocyte # 1.27 X10^3/ul (4.0); Mean Corpuscular Hgb 30.7 pg (27.0-32.0); Mean Platelet Vol. 10.2 fl (6.2-12.0); Monocyte# 0.68 X10^3/uL; Monocyte% 2.1 % (0-10); NRBC Flagged by Analyzer 0 % (0-5); Neutrophil # 28.98 X10^3/uL (2.7-7.7); Neutrophil % 90.1 % (47-70); POSITIVE COUNT YES; POSITIVE DIFFERENTIAL YES; Platelet Count 389 K/mm3 (150-450); RBC Distribution Width CV 13.2 % (11.6-14.6); RBC Distribution Width SD 45.2 fl (35.1-43.9); Red Blood Count 4.59 M/mm3 (4.2-5.4)
[2019-01-24 05:42] LABS: Anion Gap 8 (5-15); BUN 13 mg/dL (7-18); Calcium,Total 9.3 mg/dL (8.5-10.1); Chloride 88 mmol/L (98-107); Creatinine, Serum 0.59 mg/dL (0.55-1.02); EST Glomerular Filtration Rate 108 mL/min (>60); Est Glom Filt Rate - Afr Amer 131 mL/min (>60); Estimated Creatinine Clearance 75.19 ml/min; Glucose 147 mg/dL (74-106); Potassium 4.1 mmol/L (3.5-5.1); Sodium Level 134 mmol/L (136-145)
[2019-01-24 05:58] LABS: Differential Indicated SCAN CRITERIA MET; White Blood Count 32.1 K/mm3 (4.4-11.0)
--- NOTE | 2019-01-24 05:59 | NURSING ---
lab called with 32.1 WBC told primary ASHUTOSH Rizvi.
--- NOTE | 2019-01-24 09:21 | PN_ITS ---
Patient Problems: Active and Suspected Problems (Last Updated 01/22/19 @ 17:34 by Lyndon Marie DO) COPD exacerbation (Acute) Subjective: No issues overnight. Feels about the same as yesterday Vitals/I&O's: Vital Signs Temp Pulse Resp BP Pulse Ox 98.4 F 90 16 117/57 L 97 01/24/19 05:00 01/24/19 06:37 01/24/19 06:37 01/24/19 05:00 01/24/19 06:37 Oxygen Flow Rate (L/min) 2 Oxygen Delivery Method Nasal Cannula Weight: 165 lb 11.191 oz Body Mass Index (BMI) 30.3 Intake and Output for Last 24 Hours 01/22/19 01/23/19 01/24/19 23:59 23:59 22:59 Intake Total 992.5 / 1592.5 1976. / 1976. 300 / 300 Balance 992.5 / 1592.5 / 300 / 300 General: Alert, Oriented x3, Cooperative, No apparent distress HEENT: Atraumatic, PERRLA, EOMI, Normocephalic Oral: Moist Mucosa Neck: Supple, No JVD Lungs: No rhonchi, No wheeze, No rales, - - Very little air movement, very tight Cardiovascular: Regular rate, Regular Rhythm, Normal S1, Normal S2, No murmurs Abdomen: Soft, Non Tender, Non-Distended, No Hepato-splenomegaly Extremities: No edema, Capillary Refill Less than 3 Seconds Skin: No rashes, No breakdown Neurological: Neuro grossly intact, Sensory exam intact to light touch and pain Psych/Mental Status: Normal Affect, Appropriate Microbiology Past 72 Hours 01/22/19 19:15 Sputum, Expectorated/Coughed Gram Stain - Final 01/22/19 19:15 Sputum, Expectorated/Coughed Respiratory Culture - Preliminary Appears to be normal respiratory jesus. Further studies to follow. Laboratory Results 01/24/19 04:08: WBC 32.1 H*, RBC 4.59, Hgb 14.1, Hct 42.7, MCV 93.0, MCH 30.7, MCHC 33.0, RDW Std Deviation 45.2 H, RDW Coeff of Saad 13.2, Plt Count 389, MPV 10.2, Immature Gran % (Auto) 3.400 H, Neut % (Auto) 90.1 H, Lymph % (Auto) 4.0 L , Banner % (Auto) 2.1, Eos % (Auto) 0.0, Baso % (Auto) 0.4, Absolute Neuts (auto) 29.0 H, Absolute Lymphs (auto) 1.27, Nucleated RBC % 0, Differential Comment , Diff Path Review July [facility] 01/24/19 04:08: Sodium 134 L, Potassium 4.1, Chloride 88 L, Carbon Dioxide 38.0 H, Anion Gap 8, BUN 13, Creatinine 0.59, Estim Creat Clear Calc 75.19, Est GFR (MDRD) Af Amer 131, Est GFR (MDRD) Non-Af 108, BUN/Creatinine Ratio 22.0 H, Glucose 147 H, Calcium 9.3 Current Medications Acetaminophen (Tylenol) 650 mg PO Q6H PRN PRN PRN Reason: Pain Score 1-3/Temp > 100.7 F Last Admin: 01/22/19 23:21 Dose: 650 mg Documented by: Albuterol Sulfate (Ventolin Aerosols) 2.5 mg INHALATION Q2H PRN PRN PRN Reason: SHORTNESS OF BREATH Last Admin: 01/23/19 05:29 Dose: 2.5 mg Documented by: Albuterol/Ipratropium (Duoneb) 3 ml INHALATION Q4H.RT [facility] Last Admin: 01/24/19 06:37 Dose: 3 ml Documented by: Dextrose (D50w Syringe) 0 gm IV X1 PRN; Protocol PRN Reason: Hypoglycemia Enoxaparin Sodium (Lovenox) 40 mg SC DAILY@1000 [facility] Last Admin: 01/23/19 09:33 Dose: 40 mg Documented by: Glucagon () 1 mg IM .X1 PRN PRN Reason: Hypoglycemia Guaifenesin (Mucinex) 600 mg PO BID [facility] Last Admin: 01/23/19 21:34 Dose: 600 mg Documented by: Hydrochlorothiazide (Hctz) 25 mg PO DAILY [facility] Last Admin: 01/23/19 09:33 Dose: 25 mg Documented by: Azithromycin 500 mg/ Dextrose 255 mls @ 250 mls/hr IV Q24 [facility] Last Infusion: 01/23/19 10:42 Dose: Infused Documented by: Sodium Chloride () 250 mls @ 15 mls/hr IV .[id number] PRN PRN Reason: Saline Flush Ibuprofen (Motrin) 400 mg PO Q4H PRN PRN PRN Reason: Pain Score 1-3/Temp > 100.7 F Last Admin: 01/22/19 18:50 Dose: 400 mg Documented by: Lisinopril (Zestril) 20 mg PO DAILY [facility] Last Admin: 01/23/19 09:35 Dose: 20 mg Documented by: Loratadine (Claritin) 10 mg PO DAILY [facility] Last Admin: 01/23/19 09:32 Dose: 10 mg Documented by: Magnesium Oxide (Mag-Ox 400) 400 mg PO MoTuWeThFrSa@1000 [facility] Last Admin: 01/23/19 09:34 Dose: 400 mg Documented by: Melatonin (Melatonin) 3 mg PO QHS PRN PRN PRN Reason: INSOMNIA Last Admin: 01/22/19 23:21 Dose: 3 mg Documented by: Methylprednisolone (Solu-Medrol) 40 mg IV Q8 [facility] Last Admin: 01/24/19 05:11 Dose: 40 mg Documented by: Multivitamins/Minerals (Multivitamin With Minerals) 1 tablet PO MoTuWeThFrSa [facility] Last Admin: 01/23/19 09:32 Dose: 1 tablet Documented by: Nicotine (Nicoderm Cq (Pbkc)) 7 mg TRANSDERM. DAILY [facility] Last Admin: 01/23/19 17:33 Dose: 7 mg Documented by: Nutritional Formula (Lactose Free) (Ensure Enlive) 120 ml PO 4X/DAY [facility] Last Admin: 01/23/19 21:34 Dose: 120 ml Documented by: Argrs-0-Dzoc Ethyl Esters (Lovaza) 1 gm PO MoTuWeThFrSa [facility] Last Admin: 01/23/19 09:33 Dose: 1 gm Documented by: Ondansetron HCl (Zofran) 4 mg IV Q8H PRN PRN PRN Reason: NAUSEA/VOMITING Simvastatin (Zocor) 20 mg PO QHS [facility] Last Admin: 01/23/19 21:38 Dose: 20 mg Documented by: Sodium Chloride () 10 - 40 ml IV UD PRN PRN Reason: SALINE FLUSH Last Admin: 01/24/19 05:13 Dose: 10 ml Documented by: Throat Lozenges (Cepacol Sore Throat Lozenge) 1 lozenge MUCOUS MEM Q2H PRN PRN PRN Reason: Sore throat or cough Last Admin: 01/23/19 05:07 Dose: 1 lozenge Documented by: Verapamil HCl (Calan Sr) 180 mg PO DAILY@2200 [facility] Last Admin: 01/23/19 21:34 Dose: 180 mg Documented by: STROKE Vital Signs/Narrative: Vital Signs Pulse Resp Pulse Ox 01/24/19 06:37 90 16 97 Medical Necessity - Tobacco Use Smoking Status: Light Smoker (<10/day) Tobacco Use: Cigarettes Assessment/Plan All Active Problems (Last Updated 01/22/19 @ 17:34 by Lyndon Marie DO) COPD exacerbation (Acute) 1. Acute COPD exacerbation -Continue with Solu-Medrol 40 mg IV 3 times daily, which explains worse leukocytosis -Continue with inhaler medication -We will continue to advise smoking cessation, in the meantime we will provide a nicotine patch -Continue with azithromycin as she is having sputum production despite being afebrile. She does have a leukocytosis to 32 today 2. Hypokalemia-resolved 3. HTN/HLD -Blood pressures are stable -Continue with her home blood pressure medication -Continue with statin DVT: Lovenox Code Visit Inpatient E&M: 27306 Subs Hosp L2
[2019-01-24] MEDS: Loratadine 10 MG Tablet PO (10:19)
[2019-01-24] MEDS: hydroCHLOROthiazide 25 MG Tablet PO (10:20)
[2019-01-24] MEDS: Enoxaparin 40 MG/0.4 ML Syringe SC (10:20)
[2019-01-24] MEDS: guaiFENesin 600 MG Tablet PO ×2 (10:20→21:17)
[2019-01-24] MEDS: Lisinopril 20 MG Tablet PO (10:21)
[2019-01-24] MEDS: Simvastatin 20 MG Tablet PO (21:17)
[2019-01-24] MEDS: Verapamil SR 180 MG CAPSULE PO (21:17)
[2019-01-25] VITALS (9 sets, daily range): BP systolic 116–136; BP diastolic 54–73; PULSE 79–94; RESP 18–20; TEMP 36.6–36.8; O2SAT 2–97
[2019-01-25] MEDS: Ipratropium/Albuterol Sulfate 3 ML AMPUL.NEB INHALATION ×3 (03:10→10:40)
[2019-01-25 05:36] LABS: Hematocrit 40.8 % (37-47); Hemoglobin 13.3 g/dL (12.0-15.0); Mean Corp Hgb Conc 32.6 g/dL (32-36); Mean Corpuscular Hgb 30.9 pg (27.0-32.0); Mean Corpuscular Volume 94.9 fL (81-99); Mean Platelet Vol. 9.7 fl (6.2-12.0); POSITIVE COUNT YES; POSITIVE DIFFERENTIAL YES; POSITIVE MORPHOLOGY YES; Platelet Count 369 K/mm3 (150-450); RBC Distribution Width CV 13.7 % (11.6-14.6); RBC Distribution Width SD 47.3 fl (35.1-43.9)
[2019-01-25 06:03] LABS: Anion Gap 6 (5-15); BUN 18 mg/dL (7-18); BUN/Creat Ratio 27.9 RATIO (10-20); Calcium,Total 9.1 mg/dL (8.5-10.1); Chloride 92 mmol/L (98-107); Creatinine, Serum 0.64 mg/dL (0.55-1.02); Differential Indicated MANUAL DIFF; EST Glomerular Filtration Rate 98 mL/min (>60); Est Glom Filt Rate - Afr Amer 118 mL/min (>60); Estimated Creatinine Clearance 69.31 ml/min; Glucose 130 mg/dL (74-106); Potassium 3.8 mmol/L (3.5-5.1); Sodium Level 139 mmol/L (136-145)
[2019-01-25 06:04] LABS: Neutrophil % 85.9 % (47-70)
[2019-01-25 06:05] LABS: White Blood Count 31.2 K/mm3 (4.4-11.0)
[2019-01-25] MEDS: 0.9% Saline Lock 10 ML Syringe IV ×2 (06:08→12:16)
[2019-01-25 06:28] LABS: Lymphocyte 4 % (19-41); Metamyelocyte 1 % (0-1); Monocyte 2 % (0-10); Neutrophil-Band 1 % (0-5); Neutrophil-Segmented 92 % (47-70); Platelet Estimate ADEQUATE (ADEQ); Red Cell Morphology NORM C+C NORMAL (NORM C&C); Total Cells Counted 100 (MANUAL DIFF); Toxic Granulation 2+
[2019-01-25 06:29] LABS: Absolute Lymphocyte Count 1.25 X10^3/uL (0.83-4.51); Lymphocyte # 1.25 X10^3/ul (4.0); Neutrophil # 29.01 X10^3/uL (2.7-7.7)
[2019-01-25] MEDS: Multivitamins,Ther W-Minerals Tablet 1 TABLET PO (07:45)
--- NOTE | 2019-01-25 10:26 | DCINST_ITS ---
- Discharge Diagnoses Current Active Problems: Current Active and Chronic Problems (Last Updated 01/22/19 @ 17:34 by Lyndon Marie DO) COPD exacerbation (Acute) You will use the following diet at home:: Regular Your food should be the consistency of: Regular Your liquids should be the consistency of: Regular/Thin Discharge Activity: Return to Normal Activity Call your doctor if you observe: Fever of 101 or Higher, Shortness of breath, Dizziness, Fainting spells, Swelling in the ankles, Chest pain, Increased palpitations (irregular heartbeat) Allergies/Adverse Reactions: Allergies cephalexin [From Keflex] Allergy (Verified 01/22/19 15:33) Hives erythromycin base [From Erythrocin] Allergy (Verified 01/22/19 15:33) Hives atorvastatin [From Lipitor] Adverse Reaction (Verified 01/22/19 15:33) Other bupropion Adverse Reaction (Verified 01/22/19 15:33) Other varenicline [From Chantix] Adverse Reaction (Verified 01/22/19 15:33) Other Medications to take at Discharge Cetirizine HCl [Zyrtec] 10 mg PO DAILY 04/17/17 Hydrochlorothiazide [Hctz] 25 mg PO DAILY 04/17/17 Lisinopril [Zestril] 20 mg PO DAILY 04/17/17 Multivit-Min/FA/Lycopen/Lutein [Adults 50 Plus Multivitamin Tb] 2 tab PO MOTUWETHFRSA 04/17/17 Simvastatin [Zocor] 20 mg PO QHS 04/17/17 Ubidecarenone [Coq10] 100 mg PO MOTUWETHFRSA 04/17/17 Umeclidinium Brm/Vilanterol Tr [Anoro Ellipta 62.5-25 Mcg INH] 1 inhaler INHALATION DAILY 08/24/18 Albuterol Sulfate [Ventolin Hfa] 2 puff INHALATION 4X/DAY 01/22/19 Echinacea & Astragalus 3 tab PO MOTUWETHFRSA 01/22/19 Garlic 1,000 mg PO MOTUWETHFRSA 01/22/19 Guaifenesin [Mucinex] 600 mg PO BID 01/22/19 Magnesium Oxide [Magnesium] 500 mg PO MOTUWETHFRSA 01/22/19 Bird In Hand-3 Fatty Acids/Fish Oil [Fish Oil 1,000 mg Capsule] 1 cap PO MOTUWETHFRSA 01/22/19 Verapamil [Calan Sr] 180 mg PO DAILY 01/22/19 Prednisone [Deltasone] 40 mg PO DAILY #14 tab 01/25/19 The following prescriptions were given: Prednisone [Deltasone] 40 mg PO DAILY #14 tab Transmission Status: Pending to [facility] Primary Care Physician: Ming Samson MD [Primary Care Provider] - Please follow up with your Primary Care Physician in: 3-5 days Test Results: Test results from this visit will be discussed in further detail at your follow- up appointment, if applicable. Please Follow Up With: Jeramie Black MD When: 1-2 weeks
[2019-01-25] MEDS: Loratadine 10 MG Tablet PO (10:53)
[2019-01-25] MEDS: Magnesium Oxide 400 MG Tablet PO (10:55)
[2019-01-25] MEDS: Omega-3 Acid Ethyl Esters 1 GM Capsule PO (10:55)
[2019-01-25] MEDS: guaiFENesin 600 MG Tablet PO (10:56)
[2019-01-25] MEDS: Lisinopril 20 MG Tablet PO (10:56)
[2019-01-25] MEDS: hydroCHLOROthiazide 25 MG Tablet PO (10:57)
[2019-01-25] MEDS: Enoxaparin 40 MG/0.4 ML Syringe SC (11:02)
--- NOTE | 2019-01-25 11:19 | PCM.DC.SUM ---
Discharge Date and Diagnosis - Problem List Patient Problems: Active and Suspected Problems (Last Updated 01/22/19 @ 17:34 by Lyndon Marie DO) COPD exacerbation (Acute) Date of Admission: 01/22/19 Date of Discharge: 01/25/19 - Primary Discharge Diagnosis Active and Suspected Problems (Last Updated 01/22/19 @ 17:34 by Lyndon Marie DO) COPD exacerbation (Acute) Hospital Course and Treatment Imaging Results: CXR: IMPRESSION: Diffuse increased interstitial markings throughout the lungs which are of uncertain chronicity. No focal infiltrates. No pleural effusions. Consults: None Operations: None Procedures: None Summary of Care Provided: Per HPI: The patient is a 63 year old Becki Gandhi with a several day history of increasing shortness of breath, cough and sputum production. Patient is active smoker but quit about 2 days ago. This is consistent with her prior episodes of COPD exacerbation. Patient has been using her bronchodilators without any relief. Patient presented to the emergency room, had a chest x-ray that was unremarkable, received bronchodilators, 125 mg of methylprednisolone and IV doxycycline. Hospital Course: 1. Acute COPD exacerbation/[id number]-drho-old female with a history of COPD and nocturnal oxygen use presents with shortness of breath, cough, sputum production. She was started on azithromycin which she got 3 doses up to complete a course and was also started on Solu-Medrol 3 times daily. She has remained very tight on exam and there is very little air movement. I discussed this with her today however she is refusing to stay she and she is demanding to go home despite the risks of going home which were explained thoroughly to her. She did express understanding of these risks but felt that she would do better at home if she could just walk around. I went over again the risks of going home and that because she is having 3 L of oxygen needed 24 hours now that staying would be the best option for her to make sure that the steroids begin to work and that her lungs open up. She is adamantly refusing this and is demanding to be discharged home today. I will discharge her with 7 days of prednisone therapy and she can resume her home inhalers. We will talk with case management about setting up home oxygen use for 24-hour continuous oxygen. She needs to follow-up with her doughnut maker in 1 to 2 weeks as well as her PCP in 3 to 5 days. I did express to her that if/when she worsens to return to the hospital for further therapy. Also on admission she had a leukocytosis to 25, and with the initiation of steroid she did increase to 31. I discussed with her that I am not sure why her initial leukocytosis was so elevated and I do not have any further lab work. She has never been to this hospital before. She will need to follow-up with her PCP to have a possible outpatient hematology work-up, blood cultures were negative and she was afebrile during her stay and on admission. 2. Her other medical diagnoses were evaluated and her home medications were continued where appropriate Patient Problems: Active and Suspected Problems (Last Updated 01/22/19 @ 17:34 by Lyndon Marie DO) COPD exacerbation (Acute) - Physical Exam Vitals/I&O's: Vital Signs Temp Pulse Resp BP Pulse Ox 97.9 F 79 18 136/73 H 2 01/25/19 08:30 01/25/19 10:40 01/25/19 10:40 01/25/19 08:30 01/25/19 08:35 Oxygen Flow Rate (L/min) [ 3 AMBULATION with Oxygen] Oxygen Flow Rate (L/min) 2 Oxygen Delivery Method Nasal Cannula Weight: 165 lb 11.191 oz Body Mass Index (BMI) 30.3 Intake and Output for Last 24 Hours 01/24/19 01/24/19 01/25/19 00:59 23:59 23:59 Intake Total Balance General: Alert, Oriented x3, Cooperative, No apparent distress HEENT: Atraumatic, PERRLA, EOMI, Normocephalic Oral: Moist Mucosa Neck: Supple, No JVD Lungs: No rhonchi, No wheeze, No rales, - - Very little air movement, very tight Cardiovascular: Regular rate, Regular Rhythm, Normal S1, Normal S2, No murmurs Abdomen: Soft, Non Tender, Non-Distended, No Hepato-splenomegaly Extremities: No edema, Capillary Refill Less than 3 Seconds Skin: No rashes, No breakdown Neurological: Neuro grossly intact, Sensory exam intact to light touch and pain Psych/Mental Status: Normal Affect, Appropriate Microbiology Past 72 Hours 01/22/19 19:15 Sputum, Expectorated/Coughed Gram Stain - Final 01/22/19 19:15 Sputum, Expectorated/Coughed Respiratory Culture - Final 01/22/19 16:15 Blood Culture (Wb) #2 - Anticubital Left Blood Culture - Preliminary No growth in 48 hours. 01/22/19 15:46 Blood Culture (Wb) - Anticubital Right Blood Culture - Preliminary No growth in 48 hours. Laboratory Results 01/25/19 05:10: WBC 31.2 H*, RBC 4.30, Hgb 13.3, Hct 40.8, MCV 94.9, MCH 30.9, MCHC 32.6, RDW Std Deviation 47.3 H, RDW Coeff of Saad 13.7, Plt Count 369, MPV 9.7, Immature Gran % (Auto) GRAIN SCOOPER, Neut % (Auto) 85.9 H, Lymph % (Auto) GRAIN SCOOPER, [place] % (Auto) GRAIN SCOOPER, Eos % (Auto) GRAIN SCOOPER, Baso % (Auto) GRAIN SCOOPER, Absolute Neuts (auto) 29.0 H, Absolute Lymphs (auto) 1.25, Total Counted 100, Neutrophils % (Manual) 92 H, Band Neutrophils % 1, Lymphocytes % (Manual) 4 L, Monocytes % (Manual) 2, Metamyelocytes % 1, Nucleated RBC % GRAIN SCOOPER, Diff Path Review May foll, Toxic Granulation 2+, Platelet Estimate ADEQUATE, RBC Morphology NORM C+C 01/25/19 05:10: Sodium 139, Potassium 3.8, Chloride 92 L, Carbon Dioxide 41.0 H, Anion Gap 6, BUN 18, Creatinine 0.64, Estim Creat Clear Calc 69.31, Est GFR (MDRD) Af Amer 118, Est GFR (MDRD) Non-Af 98, BUN/Creatinine Ratio 27.9 H, Glucose 130 H, Calcium 9.1 Current Medications Acetaminophen (Tylenol) 650 mg PO Q6H PRN PRN PRN Reason: Pain Score 1-3/Temp > 100.7 F Last Admin: 01/22/19 23:21 Dose: 650 mg Documented by: Albuterol Sulfate (Ventolin Aerosols) 2.5 mg INHALATION Q2H PRN PRN PRN Reason: SHORTNESS OF BREATH Last Admin: 01/23/19 05:29 Dose: 2.5 mg Documented by: Albuterol/Ipratropium (Duoneb) 3 ml INHALATION Q4H.RT KEE Last Admin: 01/25/19 10:40 Dose: 3 ml Documented by: Dextrose (D50w Syringe) 0 gm IV X1 PRN; Protocol PRN Reason: Hypoglycemia Enoxaparin Sodium (Lovenox) 40 mg SC DAILY@1000 [facility] Last Admin: 01/25/19 11:02 Dose: 40 mg Documented by: Glucagon () 1 mg IM .X1 PRN PRN Reason: Hypoglycemia Guaifenesin (Mucinex) 600 mg PO BID [facility] Last Admin: 01/25/19 10:56 Dose: 600 mg Documented by: Hydrochlorothiazide (Hctz) 25 mg PO DAILY [facility] Last Admin: 01/25/19 10:57 Dose: 25 mg Documented by: Azithromycin 500 mg/ Dextrose 255 mls @ 250 mls/hr IV Q24 [facility] Last Infusion: 01/24/19 11:20 Dose: Infused Documented by: Sodium Chloride () 250 mls @ 15 mls/hr IV .[id number] PRN PRN Reason: Saline Flush Ibuprofen (Motrin) 400 mg PO Q4H PRN PRN PRN Reason: Pain Score 1-3/Temp > 100.7 F Last Admin: 01/22/19 18:50 Dose: 400 mg Documented by: Lisinopril (Zestril) 20 mg PO DAILY [facility] Last Admin: 01/25/19 10:56 Dose: 20 mg Documented by: Loratadine (Claritin) 10 mg PO DAILY [facility] Last Admin: 01/25/19 10:53 Dose: 10 mg Documented by: Magnesium Oxide (Mag-Ox 400) 400 mg PO MoTuWeThFrSa@1000 [facility] Last Admin: 01/25/19 10:55 Dose: 400 mg Documented by: Melatonin (Melatonin) 3 mg PO QHS PRN PRN PRN Reason: INSOMNIA Last Admin: 01/22/19 23:21 Dose: 3 mg Documented by: Methylprednisolone (Solu-Medrol) 40 mg IV Q8 [facility] Last Admin: 01/25/19 06:07 Dose: 40 mg Documented by: Multivitamins/Minerals (Multivitamin With Minerals) 1 tablet PO MoTuWeThFrSa [facility] Last Admin: 01/25/19 07:45 Dose: 1 tablet Documented by: Nicotine (Nicoderm Cq (Pbkc)) 7 mg TRANSDERM. DAILY [facility] Last Admin: 01/25/19 10:58 Dose: 7 mg Documented by: Nutritional Formula (Lactose Free) (Ensure Enlive) 120 ml PO 4X/DAY [facility] Last Admin: 01/25/19 10:47 Dose: 120 ml Documented by: [id number] Ethyl Esters (Lovaza) 1 gm PO MoTuWeThFrSa [facility] Last Admin: 01/25/19 10:55 Dose: 1 gm Documented by: Ondansetron HCl (Zofran) 4 mg IV Q8H PRN PRN PRN Reason: NAUSEA/VOMITING Simvastatin (Zocor) 20 mg PO QHS [facility] Last Admin: 01/24/19 21:17 Dose: 20 mg Documented by: Sodium Chloride () 10 - 40 ml IV UD PRN PRN Reason: SALINE FLUSH Last Admin: 01/25/19 06:08 Dose: 10 ml Documented by: Throat Lozenges (Cepacol Sore Throat Lozenge) 1 lozenge MUCOUS MEM Q2H PRN PRN PRN Reason: Sore throat or cough Last Admin: 01/23/19 05:07 Dose: 1 lozenge Documented by: Verapamil HCl (Calan Sr) 180 mg PO DAILY@2200 [facility] Last Admin: 01/24/19 21:17 Dose: 180 mg Documented by: Discharge Activity: Return to Normal Activity Call your doctor if you observe: Fever of 101 or Higher, Shortness of breath, Dizziness, Fainting spells, Swelling in the ankles, Chest pain, Increased palpitations (irregular heartbeat) Home Medications: Medications to take at Discharge Cetirizine HCl [Zyrtec] 10 mg PO DAILY 04/17/17 Hydrochlorothiazide [Hctz] 25 mg PO DAILY 04/17/17 Lisinopril [Zestril] 20 mg PO DAILY 04/17/17 Multivit-Min/FA/Lycopen/Lutein [Adults 50 Plus Multivitamin Tb] 2 tab PO MOTUWETHFRSA 04/17/17 Simvastatin [Zocor] 20 mg PO QHS 04/17/17 Ubidecarenone [Coq10] 100 mg PO MOTUWETHFRSA 04/17/17 Umeclidinium Brm/Vilanterol Tr [Anoro Ellipta 62.5-25 Mcg INH] 1 inhaler INHALATION DAILY 08/24/18 Albuterol Sulfate [Ventolin Hfa] 2 puff INHALATION 4X/DAY 01/22/19 Echinacea & Astragalus 3 tab PO MOTUWETHFRSA 01/22/19 Garlic 1,000 mg PO MOTUWETHFRSA 01/22/19 Guaifenesin [Mucinex] 600 mg PO BID 01/22/19 Magnesium Oxide [Magnesium] 500 mg PO MOTUWETHFRSA 01/22/19 [place]-3 Fatty Acids/Fish Oil [Fish Oil 1,000 mg Capsule] 1 cap PO MOTUWETHFRSA 01/22/19 Verapamil [Calan Sr] 180 mg PO DAILY 01/22/19 Prednisone [Deltasone] 40 mg PO DAILY #14 tab 01/25/19 Following Prescrptions Were Given to Patient: Prednisone [Deltasone] 40 mg PO DAILY #14 tab Transmission Status: Received by [facility] Primary Care Physician: Ming Samson MD [Primary Care Provider] - Please follow up with your Primary Care Physician in: 3-5 days Please Follow Up With: Jeramie Black MD When: 1-2 weeks Please Follow Up With: Ming Samson MD When: 3-5 days Disposition: Home Minutes spent on discharge:: 35 Patient Condition:: Stable Medical Necessity - Tobacco Use Smoking Status: Light Smoker (<10/day) Tobacco Use: Cigarettes Meaningful Use Info Meaningful Use Diagnoses (Choose all that apply): None applicable Code Visit Inpatient E&M: 33272 Disch Hosp
--- NOTE | 2019-01-25 11:30 | CASEMGMT ---
ASHUTOSH COLLADO updated that patient will need continuous oxygen at discharge for at home. ASHUTOSH COLLADO in to discuss oxygen provider with patient, patient is established with [facility] [place]. Updated script received from hospitalist and faxed to [facility]. Patient has portable mini tank here at [facility] that is empty. ASHUTOSH COLLADO updated [facility] [place] that patient will need new mini tank prior to discharge delivered to hospital. ASHUTOSH COLLADO updated patient.
[2019-01-25 12:05] LABS: Pathologist Review Reviewed
--- NOTE | 2019-01-25 14:00 | CHAPLAIN ---
Type of Pastoral Visit _x__ Initial Visit ___ Follow-up Visit ___ On-call Visit ___ General Patient Visit ___ Spiritual Assessment ___ Family Conference ___ Bereavement ___ Rapid Response ___ Code Blue ___ Other (describe below) Pastoral Care Referral From _x__ Patient ___ Family ___ Nurse ___ Physician ___ Underwriting Analyst ___ Process Laboratory Specialist ___ Other (describe below) Sacrament/Intervention _x__ Active listening ___ Anointing ___ Anglican ___ Bereavement ___ Communion _x__ Fadumo exploration ___ ___ Life review _x__ Prayer ___ Reconciliation ___ Sacrament of Sick ___ Supportive presence ___ Wedding ___ Other (describe below) Pastoral Comments patient does not identify with any particular buddhism but had a few questions to ask about spiritual fadumo
[2019-01-26 12:41] LABS: Pathologist Review Reviewed
--- NOTE | 2019-01-26 14:07 | CASEMGMT ---
ASHUTOSH COLLADO DC PHONE CALL DC DATE: 01/25/19 DC Disposition: Home Diagnosis on Discharge: COPD LACE/STRATA: 11/24 Intro role of CM to patient via phone. Pt was jarrod on phone, but states she is doing fine and did not have any questions. Aleah KILGOREN RN ACM
== END 2019-01-25 15:58 | disposition home or self-care (01) | DRG 192 ==
LOC: ED 15:13 → MS3 17:34
PROVIDERS: Emergency Provider Emergency Medicine; Family Provider Family Medicine; PCP Family Medicine; Visit Provider Family Medicine
DX: J44.1 Chronic obstructive pulmonary disease with (acute) exacerbation (principal); I10 Essential (primary) hypertension; J98.01 Acute bronchospasm; F17.210 Nicotine dependence, cigarettes, uncomplicated; E78.5 Hyperlipidemia, unspecified; E87.6 Hypokalemia
CPT/HCPCS: 36415; 71046; 80048; 83605; 83735; 85025; 87040; 87070; 87205; 93005; 94640; 97802; 99251; 99285; 99406; J7030; A4216; G0463